=== PATIENT | female | born 1935 | race Caucasian/White ===

== ENCOUNTER → 2016-07-08 | Outpatient (CLI) | payer MEDICARE ==
--- NOTE | 2016-07-08 14:51 | REP ---
Clinical: Thyroid disorder. Technique: PA and lateral. Comparison: 07/03/2010. Findings: Mediastinum and cardiac silhouette are stable. Lung ramirez demonstrate diffuse chronic interstitial changes and scattered punctate calcified granulomata similar to prior examination. Evidence of prior right axillary node dissection. No acute consolidation, effusion, or pneumothorax. Skeletal structures demonstrate osteopenia and degenerative changes. Impression: Chronic stable changes. No acute cardiopulmonary process identified. Signed by Aurelio Ruiz MD 07/08/2016 02:43 P
== END ==
LOC: M RAD 14:31
PROVIDERS: ATTEND Ophthalmology
DX: E07.9 Disorder of thyroid, unspecified (principal)

== ENCOUNTER → 2017-12-06 | Outpatient (REF) | payer MEDICARE ==
[2017-12-06 14:31] LABS: TOTAL 25(OH) VITAMIN D 52.7 NG/ML (30.0-100.0)
== END ==
LOC: M LABDRAW1 13:36
DX: M81.0 Age-related osteoporosis without current pathological fracture (principal)
CPT/HCPCS: 82306

== ENCOUNTER → 2018-06-22 | Outpatient (REF) | LOC: M LAB LCGH 13:35 | PROVIDERS: ATTEND Surgery | DX: Z00.00 Encounter for general adult medical examination without abnormal findings (principal) ==

== ENCOUNTER → 2020-04-30 | Outpatient (CLI) | payer MEDICARE ==
--- NOTE | 2020-04-30 11:07 | REP ---
INDICATION: LOW BACK PAIN, RIGHT SCIATICA COMPARISON: None. TECHNIQUE: AP, lateral, bilateral oblique, and coned-down views of the lumbar spine. FINDINGS: Osteopenia and advanced multilevel degenerative disc osteophyte complexes are appreciated findings include osteophytosis, endplate sclerosis, disc space narrowing, and facet arthropathy. Lateral view best demonstrates compression deformity at L1 with approximately 50% loss of superior vertebral body height as well as compression deformity at L4 with approximately 10% loss of superior vertebral body height. Findings are of indeterminate age and require correlation. IMPRESSION: 1. Compression deformities at L1 and L4 of indeterminate age require further investigation. 2. Diffuse osteopenia and advanced multilevel degenerative spondylosis. <Electronically signed by Aurelio Ruiz > 04/30/20 [id number]
== END ==
LOC: M WUC 09:18
PROVIDERS: ATTEND Internal Medicine
DX: M47.817 Spondylosis without myelopathy or radiculopathy, lumbosacral region (principal); M54.31 Sciatica, right side

== ENCOUNTER → 2020-05-07 | Outpatient (CLI) | payer MEDICARE ==
--- NOTE | 2020-05-07 12:44 | REPVR ---
PROCEDURE INFORMATION: Exam: MR Lumbar Spine Without Contrast Exam date and time: 05/07/2020 10:58 AM Age: 84 years old Clinical indication: Low back pain; Patient HX: Lbp, no HX trama TECHNIQUE: Imaging protocol: Multiplanar magnetic resonance images of the lumbar spine without intravenous contrast. COMPARISON: CR SPINE LS COMPLETE 04/30/2020 9:34 AM FINDINGS: Vertebrae: There is a moderate L1 compression fracture, probably old but could have an acute component. There is mild retropulsion superiorly which causes mild spinal canal stenosis. There is a recent L4 compression fracture without retropulsion. Spinal cord: Normal signal. No cord compression. L1-L2: No significant disc disease. No significant spinal canal stenosis. No neural foraminal stenosis. L2-L3: There is disc desiccation. Disc bulging extends into both neural foramen causing mild bilateral neural foraminal narrowing. There is facet arthropathy and ligamentum flavum hypertrophy. There is mild spinal canal stenosis. L3-L4: There is disc desiccation. There is a moderate disc/osteophyte complex that flattens the ventral thecal sac. There is moderate bilateral neural foraminal narrowing. There is facet arthropathy and ligamentum flavum hypertrophy. There is moderate spinal canal stenosis. L4-L5: There is grade 1 anterior spondylolisthesis at this level. There is disc desiccation. There is uncovering of the intervertebral disc due to the anterolisthesis. There is moderate bilateral neural foraminal narrowing. There is facet arthropathy and ligamentum flavum hypertrophy. There is moderate spinal canal stenosis. L5-S1: There is disc space narrowing and desiccation. There are moderate degenerative end plate changes at this level. There is a moderate disc bulge with a moderate superimposed broad-based disc herniation. Disc bulging extends into both neural foramen causing moderate bilateral neural foraminal narrowing. Sacrum/coccyx: There is a 1.5 cm sacral cyst. Soft tissues: Unremarkable. IMPRESSION: 1. There is a moderate L1 compression fracture, probably old but could have an acute component. There is mild retropulsion superiorly which causes mild spinal canal stenosis. There is a recent L4 compression fracture without retropulsion. 2. Moderate multilevel degenerative changes causing variable degrees of spinal canal and neuroforaminal narrowing. Please see details above. Electronically signed by: Todd Young On 05/07/2020 12:44:15 PM
== END ==
LOC: M PLARAD 10:53
PROVIDERS: ATTEND Internal Medicine
DX: R93.7 Abnormal findings on diagnostic imaging of other parts of musculoskeletal system (principal); M54.41 Lumbago with sciatica, right side

== ENCOUNTER → 2020-06-17 | Outpatient (REF) | payer MEDICARE ==
[2020-06-17 18:04] LABS: TOTAL PROTEIN 6.7 GM/DL (6.4-8.2)
== END ==
LOC: M LAB REF 16:14
PROVIDERS: ATTEND Internal Medicine
DX: S32.040D Wedge compression fracture of fourth lumbar vertebra, subsequent encounter for fracture with routine healing (principal); M80.0AXA Age-related osteoporosis with current pathological fracture, other site, initial encounter for fracture

== ENCOUNTER 2020-11-26 15:31 | Inpatient (IN) | payer MEDICARE ==
[~2020-11-26] VITALS: Ht 154.9 cm; Wt 49.6 kg
--- NOTE | 2020-11-26 16:16 | REP ---
INDICATION: trauma COMPARISON: None. TECHNIQUE: Axial noncontrast images from the skull base to the thoracic inlet with coronal reformations. This CT examination was performed using the following dose reduction techniques: Automated exposure control, adjustment of mA and/or kv according to the patient's size, and use of iterative reconstruction technique. FINDINGS: Atrophy with periventricular leukomalacia and microvascular ischemic changes are appreciated. The ventricles and sulci are symmetric. Branch-white differentiation is maintained. There is no evidence for acute intracranial hemorrhage, mass/mass effect, pathology or infarction. No extra-axial fluid collection. Calvarium is intact. Paranasal sinuses without fluid level to suggest occult injury. IMPRESSION: Atrophy and microvascular ischemic changes. No acute intracranial hemorrhage, infarction, or mass/mass effect. <Electronically signed by Aurelio Ruiz > 11/26/20 [id number]
--- NOTE | 2020-11-26 16:17 | REP ---
INDICATION: trauma COMPARISON: None. TECHNIQUE: Axial noncontrast images from the skull base to the thoracic inlet with coronal and sagittal re-formations This CT examination was performed using the following dose reduction techniques: Automated exposure control, adjustment of mA and/or kv according to the patient's size, and use of iterative reconstruction technique. FINDINGS: Advanced osteopenia and multilevel degenerative changes including endplate sclerosis/heterogeneity, disc space narrowing, osteophytosis, and facet hypertrophy. Alignment and exaggerated lordosis noted without acute fracture/compression injury or subluxation. Spinal canal is grossly patent. Posterior elements and spinous processes are intact. IMPRESSION: Advanced multilevel degenerative spondylosis. No acute fracture/compression injury or subluxation. <Electronically signed by Aurelio Ruiz > 11/26/20 [id number]
[2020-11-26] MEDS ORDERED: MORPHINE 2 MG/ML 1ML VIAL (J2270) IV PRN (17:20)
[2020-11-26] MEDS ORDERED: BOOSTRIX/ADACEL VACCINE (DIPHTH/PERTUSS/ACELL/TETANUS) 0.5ML SYR IM ONE (17:20)
[2020-11-26] MEDS ORDERED: ONDANSETRON 4MG/2ML VIAL IV ONE (17:20)
[2020-11-26 17:28] LABS: BASO % 0.1 % (0.0-1.0); HEMATOCRIT 39.5 % (36.0-47.0); HEMOGLOBIN 13.1 g/dl (12.0-15.5); LYMPH # 0.3 10^3/uL (1.5-5.0); LYMPH % 2.8 % (24.0-44.0); MEAN CORPUSCULAR HEMOGLOBIN 32.5 pg (27.0-33.0); MEAN CORPUSCULAR HGB CONC 33.2 g/dl (32.0-36.5); MONO # 0.6 10^3/uL (0.0-0.8); MONO % 5.2 % (2.0-8.0); NEUTROPHILS # 10.5 10^3/uL (1.5-8.5); NEUTROPHILS % 91.6 % (36.0-66.0); PLATELET COUNT, AUTOMATED 187 10^3/uL (150-450); RED BLOOD COUNT 4.03 10^6/uL (4.00-5.40); WHITE BLOOD COUNT 11.4 10^3/uL (4.0-10.0)
[2020-11-26 17:55] LABS: ALBUMIN 2.9 GM/DL (3.2-5.2); ALT/SGPT 41 U/L (12-78); BILIRUBIN,TOTAL 0.3 MG/DL (0.2-1.0); BLOOD UREA NITROGEN 27 MG/DL (7-18); CALCIUM LEVEL 8.8 MG/DL (8.8-10.2); CARBON DIOXIDE LEVEL 29 MEQ/L (21-32); CHLORIDE LEVEL 110 MEQ/L (98-107); CPK CREATINE PHOSPHOKINASE 482 U/L (26-192); CREATININE FOR GFR 0.75 MG/DL (0.55-1.30); GLOMERULAR FILTRATION RATE > 60.0 (>32); GLUCOSE, FASTING 151 MG/DL (70-100); POTASSIUM SERUM 4.8 MEQ/L (3.5-5.1); SODIUM LEVEL 142 MEQ/L (136-145); TOTAL PROTEIN 6.4 GM/DL (6.4-8.2)
--- NOTE | 2020-11-26 18:05 | REP ---
INDICATION: preop COMPARISON: 07/08/2016 TECHNIQUE: Portable AP view of the chest FINDINGS: Mediastinum and cardiac silhouette are stable. Diffuse chronic interstitial changes are appreciated. No focal consolidation, effusion, or pneumothorax. Prior right axillary dissection. Skeletal structures intact. IMPRESSION: Chronic changes. No acute consolidation or effusion. <Electronically signed by Aurelio Ruiz > 11/26/20 [id number]
--- NOTE | 2020-11-26 18:06 | REP ---
INDICATION: fall Nontraumatic hip pain. COMPARISON: None. TECHNIQUE: Frontal view of the pelvis with neutral and frog lateral views of the right hip. FINDINGS: Acute comminuted intertrochanteric fracture of the proximal right femur. Underlying osteopenia and degenerative changes noted. IMPRESSION: Acute comminuted intertrochanteric fracture of the right femur. <Electronically signed by Aurelio Ruiz > 11/26/20 [id number]
--- NOTE | 2020-11-26 18:07 | REP ---
INDICATION: fall COMPARISON: None. TECHNIQUE: AP and lateral right forearm FINDINGS: Fracture of the distal radial metaphysis with overlying soft tissue swelling. No further acute fracture or dislocation identified. IMPRESSION: Acute fracture of the distal radial metaphysis.. <Electronically signed by Aurelio Ruiz > 11/26/20 [id number]
--- NOTE | 2020-11-26 18:08 | REP ---
INDICATION: fall COMPARISON: None. TECHNIQUE: AP, lateral, bilateral oblique views right wrist. FINDINGS: Acute comminuted Colles' fracture of the distal radial metaphysis with overlying soft tissue swelling. Chronic osteopenia and degenerative changes are appreciated which limit further evaluation. No further acute fracture or dislocation identified. IMPRESSION: Acute comminuted Colles' fracture of the distal radial metaphysis. <Electronically signed by Aurelio Ruiz > 11/26/20 [id number]
[2020-11-26] MEDS ORDERED: NS 1,000 ML IV SCH (18:40)
[2020-11-26 19:13] LABS: RSV AMPLIFICATION NEGATIVE (NEGATIVE)
--- NOTE | 2020-11-26 19:32 | CR.PDOC ---
General Date of Consultation: Nov 26, 2020 Attending Physician: NISSA COLVIN MD Consultation REASON FOR CONSULTATION/CHIEF COMPLAINT: [1. Right intertrochanteric hip fracture 2. Right distal radius fracture]. HISTORY OF PRESENT ILLNESS: Patient sustained a fall today at home. Sloane Edward is an 85-year-old female with significant medical history of hypothyroidism, breast cancer in remission, and glaucoma who presents to ER with hip and leg pain post fall. Patient lost her balance and fell onto her right side. Sudden onset pain unable to weight-bear. Unfortunately patient remained on the floor until her returned home. CT head and C-spine nonacute. X- rays completed of right forearm chest and hip/pelvis. Chest x-ray nonacute. Radiology significant for Right intertrochanteric hip fracture and Right distal radius fracture. She states she is typically a community ambulator. Ambulates with no aids. Home Medications Scheduled Alendronate Sodium (Alendronate Sodium) 35 Mg Tablet, 35 MG PO QWEEK, (Reported) SATURDAYS Aspirin (Aspirin EC) 81 Mg Tablet.dr, 81 MG PO DAILY, (Reported) Bimatoprost (Lumigan) 0.01% 2.5ML Drops, 1 DROP OU QHS, (Reported) Calcitonin [place] (Calcitonin-[place]) 3.7 Ml Guys.pump, 1 SPRAY NARES DAILY, (Reported) Calcium Carbonate/Vitamin D3 (Calcium 600 + Vit D 400 Softgl) 1 Each Capsule, 1 CAP PO BID, (Reported) TAKES WITH LUNCH AND DINNER Docusate Sodium (Stool Softener) 100 Mg Capsule, 100 MG PO QHS, (Reported) Fexofenadine HCl (Fexofenadine HCl) 60 Mg Tablet, 60 MG PO DAILY, (Reported) Levothyroxine Sodium (Levothyroxine Sodium) 88 Mcg Tablet, 88 MCG PO DAILY, (Reported) Multivitamins (Thera M Plus Tablet) 1 Each Tablet, 1 TAB PO DAILY, (Reported) [place]-3 Fatty Acids/Fish Oil (Fish Oil 1,000 mg Capsule) 1 Each Capsule, 1,000 MG PO DAILY, (Reported) Sennosides (Senna) 8.6 Mg Tablet, 17.2 MG PO QHS, (Reported) Scheduled PRN Diclofenac Sodium (Diclofenac Sodium) 1% 100GM Gel..gram., 1 APPLIC TOP QID PRN for PAIN LEVEL 1-4, (Reported) APPLIES TO LOW BACK Allergies Coded Allergies: Penicillins (Verified Allergy, Mild, hives, 11/26/20) erythromycin base (Verified Allergy, Unknown, 11/26/20) nitrofurantoin (Verified Adverse Reaction, Mild, nausea, 11/26/20) ciprofloxacin (Verified Adverse Reaction, Unknown, leg cramps, 11/26/20) ibuprofen (Verified Adverse Reaction, Unknown, vision changes, 11/26/20) Past Medical History Medical History Breast cancer, 1996 status post chemo and radiation, borderline glaucoma, hypothyroidism, history of bowel blockage and resection Surgical History , prior danii cyst removal, varicose vein surgery, hysterectomy, bowel resection secondary to bowel obstruction with ileostomy placement and reversal, Family History Significant Family History: No pertinent family hx Social History * Smoker: Denies, other (pt does report hx of second hand smoke growing up ) Alcohol: Denies Drugs: denies Recent Travel/Sick Contacts: Denies: Recent travel, Recent sick contacts Psychosocial History: No pertinent psych hx Lives at home with , pt confirms he would be decision maker it pt incapacitated Review of Systems Constitutional: Denies: Chills, Fever, Night Sweats Eyes: Denies: Pain, Vision change ENT: Denies: Head Aches, Ear Pain, Dysphagia Skin: Denies: Rash, Lesions, Breakdown Pulmonary: Denies: Dyspnea, Cough Cardiovascular: Denies: Chest Pain, Palpitations, Orthopnea, Paroxysmal Noc. Dyspnea, Lt Headedness Gastrointestinal: Denies: Nausea, Vomiting, Abdominal Pain, Diarrhea Genitourinary: Denies: Dysuria, Frequency, Incontinence, Retention Hematologic: Denies: Bruising, Bleeding Excessively Musculoskeletal: Reports: Back Pain, Leg Pain, Joint Pain; Denies: Neck Pain, Muscle Pain, Spasms Neurological: Denies: Weakness, Numbness, Change in speech, Confusion Psych: Reports: Mood Normal; Denies: Depression, Memory Issues Physical Examination Physical Examination General Exam: Positive: Alert, Cooperative, No Acute Distress Eye Exam: Positive: PERRLA, Conjunctiva & lids normal, EOMI; Negative: Sclera icteric ENT Exam: Positive: Atraumatic, Mucous membr. moist/pink, Pharynx Normal Neck Exam: Positive: Supple, Other (limitation to neck ROM d/t discomfort with movement ); Negative: JVD, thyromegaly Telemetry: Positive: No significant arrhythmia Abdomen Exam: Soft non-tender Extremity Exam: Right upper extremity, tenderness palpation right distal radius mild deformity. Maintains passive range of motion. Good pulses distally good capillary refill ,sensory intact to light touch. Denies any pain shoulder and elbow. Maintains good range of motion shoulder and elbow. Examination right lower extremity. Extreme pain positive logroll. No pain on palpation distal femur knee and ankle. Sensory intact to light touch. Good pulses distally. Leg is mildly shortened and externally rotated. Negative exam for left lower extremity. Skin Exam: Positive: Nl turgor and temperature, Other skin issue (scalp abrasion, r wist bruising ); Negative: Breakdown, Lesion Neuro Exam: Positive: Normal Speech; Negative: Normal Gait Psych Exam: Positive: Mental status NL, Mood NL, Oriented x 3 ALLERGIES: Please see below. HOME MEDICATIONS: Please see below. LABORATORY DATA: Please see below. ASSESSMENT/PLAN: 1. [Admit to the hospitalist for preoperative optimization and pain control]. 2. [N.p.o. at midnight 3. Patient consented for right cephalomedullary nail. Patient consented for closed reduction and casting right distal radius possible open reduction internal fixation left distal radius.]. Vital Signs/I&O Vital Signs Date Time Temp Pulse Resp B/P (MAP) Pulse Ox O2 Delivery O2 Flow Rate FiO2 11/26/20 17:29 18 99 11/26/20 17:04 98.6 64 137/66 (89) Room Air Laboratory Data Labs 24H Laboratory Tests 2 11/26/20 17:03: Immature Granulocyte % (Auto) 0.3, Neutrophils (%) (Auto) 91.6H, Lymphocytes (%) (Auto) 2.8L, Monocytes (%) (Auto) 5.2, Eosinophils (%) (Auto) 0.0, Basophils (%) (Auto) 0.1, Neutrophils # (Auto) 10.5H, Lymphocytes # (Auto) 0.3L, Monocytes # (Auto) 0.6, Eosinophils # (Auto) 0.0, Basophils # (Auto) 0.0, Nucleated Red Blood Cells % (auto) 0.0, Anion Gap 3L, Glomerular Filtration Rate > 60.0, Calcium Level 8.8, Total Bilirubin 0.3, Aspartate Amino Transf (AST/SGOT) 64H, Alanine Aminotransferase (ALT/SGPT) 41, Alkaline Phosphatase 44L, Total Creatine Kinase 482H, Total Protein 6.4, Albumin 2.9L, Albumin/Globulin Ratio 0.8L 11/26/20 18:10: Coronavirus (COVID-19)(PCR) NEGATIVE, Influenza Type A (RT-PCR) NEGATIVE, Influenza Type B (RT-PCR) NEGATIVE, Respiratory Syncytial Virus (PCR) NEGATIVE 11/26/20 18:59: CBC/BMP Laboratory Tests 11/26/20 17:03 Allergies Coded Allergies: Penicillins (Verified Allergy, Mild, hives, 11/26/20) erythromycin base (Verified Allergy, Unknown, 11/26/20) nitrofurantoin (Verified Adverse Reaction, Mild, nausea, 11/26/20) ciprofloxacin (Verified Adverse Reaction, Unknown, leg cramps, 11/26/20) ibuprofen (Verified Adverse Reaction, Unknown, vision changes, 11/26/20) Home Medications Scheduled Alendronate Sodium (Alendronate Sodium) 35 Mg Tablet, 35 MG PO QWEEK, (Reported) SATURDAYS Aspirin (Aspirin EC) 81 Mg Tablet.dr, 81 MG PO DAILY, (Reported) Bimatoprost (Lumigan) 0.01% 2.5ML Drops, 1 DROP OU QHS, (Reported) Calcitonin [place] (Calcitonin-[place]) 3.7 Ml Guys.pump, 1 SPRAY NARES DAILY, (Reported) Calcium Carbonate/Vitamin D3 (Calcium 600 + Vit D 400 Softgl) 1 Each Capsule, 1 CAP PO BID, (Reported) TAKES WITH LUNCH AND DINNER Docusate Sodium (Stool Softener) 100 Mg Capsule, 100 MG PO QHS, (Reported) Fexofenadine HCl (Fexofenadine HCl) 60 Mg Tablet, 60 MG PO DAILY, (Reported) Levothyroxine Sodium (Levothyroxine Sodium) 88 Mcg Tablet, 88 MCG PO DAILY, (Reported) Multivitamins (Thera M Plus Tablet) 1 Each Tablet, 1 TAB PO DAILY, (Reported) [place]-3 Fatty Acids/Fish Oil (Fish Oil 1,000 mg Capsule) 1 Each Capsule, 1,000 MG PO DAILY, (Reported) Sennosides (Senna) 8.6 Mg Tablet, 17.2 MG PO QHS, (Reported) Scheduled PRN Diclofenac Sodium (Diclofenac Sodium) 1% 100GM Gel..gram., 1 APPLIC TOP QID PRN for PAIN LEVEL 1-4, (Reported) APPLIES TO LOW BACK AUDIE NISSA HENDRICKS MD Nov 26, 2020 19:32
[2020-11-26] MEDS ORDERED: FEXO60CA PO (19:37)
[2020-11-26] MEDS ORDERED: LEVO88TA3 PO (19:37)
[2020-11-26] MEDS ORDERED: ASPI-161 PO (19:37)
[2020-11-26] MEDS ORDERED: FISH1000 PO (19:37)
[2020-11-26] MEDS ORDERED: MM S100C PO (19:37)
[2020-11-26] MEDS ORDERED: VITMTA PO (19:37)
[2020-11-26] MEDS ORDERED: BIMA01SOL OU (19:37)
[2020-11-26] MEDS ORDERED: ALEN35TA56 PO (19:37)
[2020-11-26] MEDS ORDERED: SENN-80 PO (19:37)
[2020-11-26] MEDS ORDERED: DICL1GEL3 TOP (19:37)
[2020-11-26] MEDS ORDERED: CALC20SPR NARES (19:37)
[2020-11-26] MEDS ORDERED: CALCCAP4 PO (19:37)
[2020-11-26] MEDS ORDERED: HOME MED LIST COMPLETE! XX SCH (19:40)
[2020-11-26 20:44] LABS: NT-PRO BNP 493 PG/ML (<450)
[2020-11-26] MEDS: DICLOFENAC EPOLAMINE 1.3 % PATCH TOP SCH (21:00)
[2020-11-26] MEDS: DOCUSATE SODIUM 100MG CAPSULE PO SCH ×2 (21:00→23:47)
[2020-11-26] MEDS: CALCIUM/VITAMIN D 500 MG TAB PO SCH ×2 (21:00→23:47)
[2020-11-26] MEDS: SENNA 8.6 MG TAB (SENOKOT) PO SCH ×2 (21:00→23:47)
--- NOTE | 2020-11-26 21:22 | HPEPDOC ---
General Date of Admission Nov 26, 2020 at 18:40 Date of Service: Nov 26, 2020 Chief Complaint fall Source: Patient History of Present Illness Sloane Edward is an 85-year-old female with significant medical history of hypothyroidism, breast cancer in remission, and glaucoma who presents to ER with hip and leg pain post fall. Patient reports that her had left her work and she had just taken a shower when she had reached for her clothing from the [employer] to get dressed and reports that she had lost her balance landing hard on her right side. Patient reports that she had instant intense sharp/shooting pain and she knew "had broken something". Patient reports that she was unable to get up from the floor did not have her cell phone available and as her had left for work she had laid on the floor hoping someone would just come home. Patient reports that her came home about 3 and thus she was on the floor roughly from 10:30 AM till 3 PM. Pt denies palafox, sinus congestion, sore throat, productive cough, sob, palpitations, chest pain, n/v/d, abdominal pain, sensory changes or syncope. Patient reports that she did not think she hit her head but notable wound to scalp. Of note, patient nonfocal neuro exam. CT head and C-spine nonacute. X-rays c ompleted of right forearm chest and hip/pelvis. Chest x-ray nonacute. Radiology significant for Right intertrochanteric hip fracture and Right distal radius fracture. Initial lab work significant for WBC 11.4, BUN 27, creatinine 0.75, blood glucose 151, CPK 482. Ortho was consulted in ED for further recommendations. Home Medications Scheduled Alendronate Sodium (Alendronate Sodium) 35 Mg Tablet, 35 MG PO QWEEK, (Reported) SATURDAYS Aspirin (Aspirin EC) 81 Mg Tablet.dr, 81 MG PO DAILY, (Reported) Bimatoprost (Lumigan) 0.01% 2.5ML Drops, 1 DROP OU QHS, (Reported) Calcitonin [place] (Calcitonin-[place]) 3.7 Ml [place].pump, 1 SPRAY NARES DAILY, (Reported) Calcium Carbonate/Vitamin D3 (Calcium 600 + Vit D 400 Softgl) 1 Each Capsule, 1 CAP PO BID, (Reported) TAKES WITH LUNCH AND DINNER Docusate Sodium (Stool Softener) 100 Mg Capsule, 100 MG PO QHS, (Reported) Fexofenadine HCl (Fexofenadine HCl) 60 Mg Tablet, 60 MG PO DAILY, (Reported) Levothyroxine Sodium (Levothyroxine Sodium) 88 Mcg Tablet, 88 MCG PO DAILY, (Reported) Multivitamins (Thera M Plus Tablet) 1 Each Tablet, 1 TAB PO DAILY, (Reported) [place]-3 Fatty Acids/Fish Oil (Fish Oil 1,000 mg Capsule) 1 Each Capsule, 1,000 MG PO DAILY, (Reported) Sennosides (Senna) 8.6 Mg Tablet, 17.2 MG PO QHS, (Reported) Scheduled PRN Diclofenac Sodium (Diclofenac Sodium) 1% 100GM Gel..gram., 1 APPLIC TOP QID PRN for PAIN LEVEL 1-4, (Reported) APPLIES TO LOW BACK Allergies Coded Allergies: Penicillins (Verified Allergy, Mild, hives, 11/26/20) erythromycin base (Verified Allergy, Unknown, 11/26/20) nitrofurantoin (Verified Adverse Reaction, Mild, nausea, 11/26/20) ciprofloxacin (Verified Adverse Reaction, Unknown, leg cramps, 11/26/20) ibuprofen (Verified Adverse Reaction, Unknown, vision changes, 11/26/20) Past Medical History Medical History Breast cancer, 1996 status post chemo and radiation, borderline glaucoma, hypothyroidism, history of bowel blockage and resection Surgical History , prior danii cyst removal, varicose vein surgery, hysterectomy, bowel resection secondary to bowel obstruction with ileostomy placement and reversal, Family History Significant Family History: No pertinent family hx Social History * Smoker: Denies, other (pt does report hx of second hand smoke growing up ) Alcohol: Denies Drugs: denies Recent Travel/Sick Contacts: Denies: Recent travel, Recent sick contacts Psychosocial History: No pertinent psych hx Lives at home with , pt confirms he would be decision maker it pt incapacitated A-FIB/CHADSVASC A-FIB History Current/History of A-Fib/PAF?: No Current PO Anticoag Therapy: No Review of Systems Constitutional: Denies: Chills, Fever, Night Sweats Eyes: Denies: Pain, Vision change ENT: Denies: Head Aches, Ear Pain, Dysphagia Skin: Denies: Rash, Lesions, Breakdown Pulmonary: Denies: Dyspnea, Cough Cardiovascular: Denies: Chest Pain, Palpitations, Orthopnea, Paroxysmal Noc. Dyspnea, Lt Headedness Gastrointestinal: Denies: Nausea, Vomiting, Abdominal Pain, Diarrhea Genitourinary: Denies: Dysuria, Frequency, Incontinence, Retention Hematologic: Denies: Bruising, Bleeding Excessively Musculoskeletal: Reports: Back Pain, Leg Pain, Joint Pain; Denies: Neck Pain, Muscle Pain, Spasms Neurological: Denies: Weakness, Numbness, Change in speech, Confusion Psych: Reports: Mood Normal; Denies: Depression, Memory Issues Physical Examination General Exam: Positive: Alert, Cooperative, No Acute Distress Eye Exam: Positive: PERRLA, Conjunctiva & lids normal, EOMI; Negative: Sclera icteric ENT Exam: Positive: Atraumatic, Mucous membr. moist/pink, Pharynx Normal Neck Exam: Positive: Supple, Other (limitation to neck ROM d/t discomfort with movement ); Negative: JVD, thyromegaly Chest Exam: Positive: Diminished Heart Exam: Positive: Rate Normal, Regular Rhythm, Normal S1, Normal S2; Negative: Murmurs, Rubs Telemetry: Positive: No significant arrhythmia Abdomen Exam: Positive: Normal bowel sounds, Soft; Negative: Tenderness, Hepatospenomegaly Extremity Exam: Positive: Normal pulses, Tenderness (tender right hip/ thigh and r wrist ); Negative: Clubbing, Cyanosis, Edema, Swelling Skin Exam: Positive: Nl turgor and temperature, Other skin issue (scalp abrasion, r wist bruising ); Negative: Breakdown, Lesion Neuro Exam: Positive: Normal Speech; Negative: Normal Gait Psych Exam: Positive: Mental status NL, Mood NL, Oriented x 3 Vital Signs Vital Signs Date Time Temp Pulse Resp B/P (MAP) Pulse Ox O2 Delivery O2 Flow Rate FiO2 11/26/20 17:29 18 99 11/26/20 17:04 98.6 64 137/66 (89) Room Air Laboratory Data Labs 24H Laboratory Tests 2 11/26/20 17:03: Immature Granulocyte % (Auto) 0.3, Neutrophils (%) (Auto) 91.6H, Lymphocytes (%) (Auto) 2.8L, Monocytes (%) (Auto) 5.2, Eosinophils (%) (Auto) 0.0, Basophils (%) (Auto) 0.1, Neutrophils # (Auto) 10.5H, Lymphocytes # (Auto) 0.3L, Monocytes # (Auto) 0.6, Eosinophils # (Auto) 0.0, Basophils # (Auto) 0.0, Nucleated Red Blood Cells % (auto) 0.0, Anion Gap 3L, Glomerular Filtration Rate > 60.0, Calcium Level 8.8, Total Bilirubin 0.3, Aspartate Amino Transf (AST/SGOT) 64H, Alanine Aminotransferase (ALT/SGPT) 41, Alkaline Phosphatase 44L, Total Creatine Kinase 482H, Total Protein 6.4, Albumin 2.9L, Albumin/Globulin Ratio 0.8L 11/26/20 18:10: Coronavirus (COVID-19)(PCR) NEGATIVE, Influenza Type A (RT-PCR) NEGATIVE, Influenza Type B (RT-PCR) NEGATIVE, Respiratory Syncytial Virus (PCR) NEGATIVE 11/26/20 18:59: Magnesium Level 2.0 CBC/BMP Laboratory Tests 11/26/20 17:03 Assessment/Plan 1. Right intertrochanteric hip fracture secondary to mechanical fall -Monitor patient, tele -IS, hip precaution and fall precautions -pain management -Neurovascular checks -N.p.o. at midnight for intervention. -Pre-op ekg, cxr nonacute -A.m. lab -Ortho consulted in ED and appreciate further recommendations. 2. Mild rhabdo in patient with fall: Patient reports 9 hours after fall on floor. CPK 482 -Monitor fluid balance, I's and O's, urinary output -Hydration with consideration -Avoid nephrotoxins as able -Serial CPKs/BMP -A.m. lab 3. Leukocytosis: In setting of above, likely reactive. Patient not tachycardic or tachypneic, normotensive and afebrile. Chest x-ray nonacute. UA pending. Consider differentials/need for empiric coverage. 4. Head abrasion / fall: CT head and neck nonacute. -Scalp site care - neuro checks x24 hr - pt not on OAC 5. Right distal radius fracture -Neurovascular checks every shift. -Splint ordered. 6. Hypothyroid: Continue levothyroxine 7. Glaucoma: She on fall precautions. Home medication drops to be continued once reconciled 8. Chronic back pain: Aggravated with fall. Encourage nonpharmacologic methods. We will continue topical adjunct pain medications as well as morphine. DVT prophylaxis: Heparin subcu CODE STATUS: Full Disposition planning: Likely require rehab placement Plan / VTE VTE Prophylaxis Ordered?: Yes Attending Note Attending Note TIME OF SERVICE 845PM Ms. Edward is an 85 yr old F w a previous hx of osteoporosis who reports loosing balance and falling. Her PE was remarkable for a slim build. She didnt appear to be in pain She will be admitted for: #Right femur fx - pain meds / her RCRI score is 0. Because she is older than 65 we will check a pro-BNP as part of dawna-operative evaluation (if its >300 she will need to have troponins checked daily, other than that she will not need additional testing prior to proceeding with surgery) / NPO w IVF # Elevated CPK - trend CPK / f/u urine myoglobin and c/w IVF # Osteoporosis -She has had a fx despite taking anti-resorptive Meds. She will need to be referred to Endo to determine if this fx is due to alendronate failure, for a work-up to r/o secondary causes of osteoporosis and to determine if she needs to be upgraded to Denosumab and or teriparatide PABLO GRIMALDO NP Nov 26, 2020 20:14 LG LARSON MD Nov 26, 2020 22:28
[2020-11-26 22:30] VITALS: BP 145/63
[2020-11-26 23:36] LABS: BLOOD UREA NITROGEN 26 MG/DL (7-18); CALCIUM LEVEL 8.8 MG/DL (8.8-10.2); CARBON DIOXIDE LEVEL 28 MEQ/L (21-32); CHLORIDE LEVEL 110 MEQ/L (98-107); CPK CREATINE PHOSPHOKINASE 578 U/L (26-192); CREATININE FOR GFR 0.84 MG/DL (0.55-1.30); GLOMERULAR FILTRATION RATE > 60.0 (>32); GLUCOSE, FASTING 151 MG/DL (70-100); POTASSIUM SERUM 4.4 MEQ/L (3.5-5.1); SODIUM LEVEL 141 MEQ/L (136-145)
[2020-11-26] MEDS: MORPHINE 2 MG/ML 1ML VIAL (J2270) IV PRN (23:48)
[2020-11-26] MEDS: HEPARIN SOD (PORCINE) 5000UNITS/ML 1ML VIAL/SYRINGE SC SCH (23:49)
[2020-11-27] VITALS (9 sets, daily range): BP systolic 117–140; BP diastolic 58–76
[2020-11-27] MEDS ORDERED: D5W/0.9% SODIUM CHLORIDE 1,000 ML IV SCH
[2020-11-27] MEDS: ONDANSETRON 4MG/2ML VIAL IV PRN ×2 (03:24→08:02)
[2020-11-27] MEDS: MORPHINE 2 MG/ML 1ML VIAL (J2270) IV PRN ×4 (03:55→20:38)
[2020-11-27 04:15] LABS: BLOOD UREA NITROGEN 27 MG/DL (7-18); CALCIUM LEVEL 8.2 MG/DL (8.8-10.2); CARBON DIOXIDE LEVEL 27 MEQ/L (21-32); CHLORIDE LEVEL 112 MEQ/L (98-107); CPK CREATINE PHOSPHOKINASE 616 U/L (26-192); CREATININE FOR GFR 0.77 MG/DL (0.55-1.30); GLOMERULAR FILTRATION RATE > 60.0 (>32); GLUCOSE, FASTING 146 MG/DL (70-100); POTASSIUM SERUM 4.4 MEQ/L (3.5-5.1); SODIUM LEVEL 141 MEQ/L (136-145)
[2020-11-27] MEDS: LEVOTHYROXINE 88MCG TABLET (0.088 MG) PO SCH (06:00)
[2020-11-27] MEDS: HEPARIN SOD (PORCINE) 5000UNITS/ML 1ML VIAL/SYRINGE SC SCH ×3 (06:26→20:37)
[2020-11-27] MEDS: ASPIRIN 81MG ENTERIC TABLET PO SCH (08:08)
[2020-11-27] MEDS: OMEGA-3 1000MG CAPSULE PO SCH (08:08)
[2020-11-27] MEDS: CALCIUM/VITAMIN D 500 MG TAB PO SCH ×2 (08:08→20:37)
[2020-11-27] MEDS: FEXOFENADINE 60 MG TAB PO SCH (08:08)
[2020-11-27] MEDS: MULTIVITAMINS/MINERALS THERAP 1 TAB PO SCH (08:08)
[2020-11-27] MEDS: DICLOFENAC EPOLAMINE 1.3 % PATCH TOP SCH ×2 (09:00→21:50)
[2020-11-27] MEDS ORDERED: FLUBLOK(EGG FREE)(QUAD)INFLUENZA VACC 0.5ML SYRINGE 18YRS & OLDER IM ONE (09:00)
[2020-11-27] MEDS ORDERED: CALCITONIN NASAL SPRAY 3.7 ML BTL SCH (09:00)
[2020-11-27 10:12] LABS: BASO % 0.1 % (0.0-1.0); HEMATOCRIT 35.4 % (36.0-47.0); HEMOGLOBIN 11.4 g/dl (12.0-15.5); LYMPH # 0.8 10^3/uL (1.5-5.0); LYMPH % 11.5 % (24.0-44.0); MEAN CORPUSCULAR HEMOGLOBIN 31.8 pg (27.0-33.0); MEAN CORPUSCULAR HGB CONC 32.2 g/dl (32.0-36.5); MEAN CORPUSCULAR VOLUME 98.6 fl (80.0-96.0); MONO # 0.7 10^3/uL (0.0-0.8); MONO % 10.4 % (2.0-8.0); NEUTROPHILS # 5.3 10^3/uL (1.5-8.5); NEUTROPHILS % 77.6 % (36.0-66.0); PLATELET COUNT, AUTOMATED 162 10^3/uL (150-450); RED BLOOD COUNT 3.59 10^6/uL (4.00-5.40); WHITE BLOOD COUNT 6.9 10^3/uL (4.0-10.0)
[2020-11-27 10:36] LABS: BLOOD UREA NITROGEN 26 MG/DL (7-18); CALCIUM LEVEL 8.1 MG/DL (8.8-10.2); CARBON DIOXIDE LEVEL 30 MEQ/L (21-32); CHLORIDE LEVEL 112 MEQ/L (98-107); CPK CREATINE PHOSPHOKINASE 599 U/L (26-192); CREATININE FOR GFR 0.77 MG/DL (0.55-1.30); GLOMERULAR FILTRATION RATE > 60.0 (>32); GLUCOSE, FASTING 140 MG/DL (70-100); POTASSIUM SERUM 4.7 MEQ/L (3.5-5.1); SODIUM LEVEL 143 MEQ/L (136-145)
[2020-11-27] MEDS ORDERED: MIDAZOLAM INJ 2MG/2ML VIAL (J2250 PER 1MG) As Ordered ONE (13:54)
[2020-11-27] MEDS ORDERED: KETAMINE HCL 200 MG/20 ML VIAL As Ordered ONE (13:54)
[2020-11-27] MEDS ORDERED: fentaNYL 100 MCG/2 ML INJECTION (J3010) As Ordered ONE (13:57)
[2020-11-27] MEDS ORDERED: ROCURONIUM BROMIDE 50 MG/5 ML VIAL As Ordered ONE (13:57)
[2020-11-27] MEDS ORDERED: propofoL 200 MG/20 ML VIAL As Ordered ONE (13:57)
[2020-11-27] MEDS ORDERED: LIDOCAINE 2% 100MG/5ML SDV (FOR ANES.) As Ordered ONE (13:57)
[2020-11-27] MEDS ORDERED: VANCOMYCIN 1000MG/20ML VIAL As Ordered ONE (14:39)
[2020-11-27] MEDS ORDERED: VANCOMYCIN HCL 1,000 MG, VIAL MATE ADAPTER 1 EACH in NS 250 ML IV ONE (15:00)
[2020-11-27] MEDS ORDERED: BUPIVACAINE/EPIN 0.5% 30 ML VIAL As Ordered ONE (15:03)
[2020-11-27] MEDS ORDERED: PHENYLephrine 500MCG 5ML (100MCG/ML) SYRINGE As Ordered ONE ×2 (15:36→15:43)
[2020-11-27] MEDS ORDERED: ePHEDrine SULFATE 25 MG/5 ML(5MG/ML) SYRINGE As Ordered ONE (15:42)
[2020-11-27] MEDS ORDERED: ONDANSETRON 4MG/2ML VIAL As Ordered ONE (16:07)
[2020-11-27] MEDS ORDERED: ACETAMINOPHEN 1000MG 100ML IV BTL (OFIRMEV) (J0131 PER 10MG) As Ordered ONE (16:07)
[2020-11-27] MEDS ORDERED: SUGAMMADEX SODIUM 500 MG/5 ML VIAL (BRIDION) As Ordered ONE (16:12)
--- NOTE | 2020-11-27 17:30 | ROOPDOC ---
[facility] Report Of Operation Report of Operation DATE OF PROCEDURE: 11/27/20 PREPROCEDURE DIAGNOSES: [1. Right displaced intertrochanteric hip fracture 2. Right distal radius fracture]. POSTPROCEDURE DIAGNOSES: [Same]. PROCEDURE PERFORMED: [1. Right cephalomedullary nail. Deysi gamma nail 10 x 360 mm, 100 mm hip screw, 1 distal locking screw 2. Close reduction under fluoroscopy and application of short arm cast]. SURGEON: [Nissa chandler], MANAGER [employer]: [staging technician], ANESTHESIA: [General]. ESTIMATED BLOOD LOSS: Approximately [100 mils] mL. COMPLICATIONS: [None]. SPECIMENS REMOVED: [None] DESCRIPTION OF PROCEDURE: [Patient was met in the holding area. Consent was confirmed. Imaging was confirmed. 1 g of vancomycin was ordered preoperatively. Patient was seen by anesthesia. Patient is walked into room [facility] at [facility]. We proceeded with the right cephalomedullary nail as a first procedure. She was given general anesthetic in usual manner. She was then transferred onto the fracture table in the supine position. The right leg was put into gentle traction and internal fixation. The left leg was abducted and extended along the central pulse of the fracture table. It was immobilized and well-padded. All bony prominences are well-padded. The right arm was placed across her chest. Post was placed in a perineum. X-rays were done AP lateral obliques to confirm the best anatomic reduction. Once we thought we had a good reduction patient was prepped and draped in usual manner. Under fluoroscopic guidance 2 inch incision was made 2 inches proximal to the GT. Threaded K wire was placed just medial to the GT down into the intramedullary canal under fluoroscopic guidance. The fascia and abductors were then divided on either side of the wire. Soft tissue guide over the wire. The entry reamer was then used over the wire to enter into the femoral canal. Ball-tipped wire was placed down the canal towards the knee under fluoroscopic guidance. The femur was then measured to receive a 360 mm nail. Over the ball- tipped guidewire the femur was then reamed incrementally to 12 mm to receive the 10 mm nail. Patient did not have much chatter and seemed very osteoporotic with reaming. The 360 mm Deysi gamma nail was then advanced over the K wire under fluoroscopic guidance. Care was taken distally to ensure no notching of the anterior cortex. Nail was advanced. Radiolucent guide was then used and 125 degrees. The guides were advanced to the lateral cortex through a stab incision. Guidewire was placed in the center of the femoral head. It was measured to receive 100 mm hip screw. Lateral cortex femoral neck and femoral head were then reamed to receive the hip screw. Hip screw was placed over the threaded guidewire with no complications. Traction was released. Intertrochanteric fracture was compressed. Interference screw was locked proximally. Now focused on distal locking screws. You obtain it true lateral of the knee and using perfect [place] technique we drilled the proximal static screw. First made a stab incision and cleared the soft tissue with a snap. Drill the static hole and placed 45 mm distal locking screw through a stab incision Final x-rays were taken and we thought we had a good reduction. Wounds were irrigated with copious amounts of saline. Closed with 2-0 Vicryl, vida and a sterile dressing applied. Patient was then taken down from the traction and placed in the supine position on the traction table. We now focused on the right distal radius. With gentle traction and dorsal pressure over the posterior cortex the fracture was reduced. We used fluoroscopy to ensure good reduction of the fracture. We managed her restore radial inclination and her fracture was now at neutral. We thought this was a good position. We then applied a well molded plaster Bernarda cast to the right upper extremity. Final x-rays were taken and we thought we had a good reduction of the fracture. Plan: 1. Patient may be weightbearing as tolerated right lower extremity 2. Patient nonweightbearing right upper extremity. Sling for comfort. Encourage range of motion of elbow and fingers. 3. Repeat x-rays right distal radius 1 week, repeat x-rays right femur 1 week 4. DVT prophylaxis as per medicine. 5. Patient urine sample was sent for culture and sensitivity. Medicine to follow-up on culture and sensitivity and treat accordingly. 6. Vancomycin 1 g IV every 12 hours 2 doses]. 7. Vida out 14 days postop NISSA COLVIN MD Nov 27, 2020 17:30
--- NOTE | 2020-11-27 17:36 | ECGEPIP ---
[facility] - ED Test Date: 2020-11-26 Pat Name: SHWETA OSCAR Department: Room: - Gender: Female Quality And Reliability Engineer: SYNCOPE : 1935 Requested By: SURINDER Ayala Order Number: [id number] Reading MD: Ann-Marie Egan Measurements Intervals [place] Rate: 64 P: 77 MN: 84 QRS: 26 QRSD: 136 T: 47 QT: 458 QTc: 472 Interpretive Statements Sinus rhythm with short MN Right bundle branch block prolonged qtc No prior Electronically Signed on 11-27-2020 17:35:54 EDT by Ann-Marie Egan
--- NOTE | 2020-11-27 17:52 | IPNPDOC ---
Subjective Date Seen The patient was seen on 11/27/20. Subjective Chief Complaint/HPI Mrs. Edward is an 85-year-old female with history of breast cancer status post chemo and radiation and hypothyroidism who presents with a mechanical fall resulting in a right femur fracture and right distal radius fracture. Patient was seen in the morning prior to her operation. She denies any chest pain or dyspnea but reported right hip pain. Patient was taken to the OR this afternoon for right cephalomedullary nail for right femur fracture and closed reduction under fluoroscopy of right distal radius fracture. Objective Physical Examination General Exam: Positive: Alert, Cooperative, Mild Distress Eye Exam: Negative: Sclera icteric Chest Exam: Positive: Clear to auscultation Heart Exam: Positive: Rate Normal, Regular Rhythm Abdomen Exam: Positive: Normal bowel sounds, Soft; Negative: Tenderness Extremity Exam: Negative: Edema Skin Exam: Positive: Other skin issue (scalp abrasion, r wist bruising ) Neuro Exam: Positive: Normal Speech Psych Exam: Positive: Mental status NL, Mood NL Assessment /Plan Assessment Mrs. Edward is an 85-year-old female with history of breast cancer status post chemo and radiation and hypothyroidism who presents with a mechanical fall resulting in a right femur fracture and right distal radius fracture. Orthopedic surgery was consulted. Dr. Tidwell took patient to the OR on 11/27/2020 for right cephalomedullary nail for right femur fracture and closed reduction under fluoroscopy for right distal radius fracture. Plan/VTE VTE Prophylaxis Ordered?: Yes Plan 1. Right femur fracture secondary to mechanical fall Orthopedic surgery consulted, recommendations appreciated Patient went to the OR for right cephalomedullary nail on 11/27/2020 2. Right distal radius fracture Orthopedic surgery consulted, recommendations appreciated Patient went to the OR for right closed reduction under fluoroscopy with short arm cast on 11/27/2020 3. Hypothyroidism Continue levothyroxine 4. Glaucoma Continue bimatoprost 5. DVT prophylaxis Heparin subcu Disposition: Pending clinical improvement VS, I&O, 24H, Fishbone Vital Signs/I&O Vital Signs Date Time Temp Pulse Resp B/P (MAP) Pulse Ox O2 Delivery O2 Flow Rate FiO2 11/27/20 13:30 99.5 79 18 140/76 (97) 94 Room Air I&O- Last 24 Hours up to 6 AM 11/27/20 06:00 Intake Total 400 ml Output Total 150 ml Balance 250 ml Laboratory Data 24H LABS Laboratory Tests 2 10/5/21 18:10: Coronavirus (COVID-19)(PCR) NEGATIVE, Influenza Type A (RT-PCR) NEGATIVE, Influenza Type B (RT-PCR) NEGATIVE, Respiratory Syncytial Virus (PCR) NEGATIVE 11/26/20 18:59: Magnesium Level 2.0 11/26/20 22:57: Anion Gap 3L, Glomerular Filtration Rate > 60.0, Calcium Level 8.8, Total Creatine Kinase 578H 11/27/20 00:00: 11/27/20 03:22: Anion Gap 2L, Glomerular Filtration Rate > 60.0, Calcium Level 8.2L, Total Creatine Kinase 616H 11/27/20 08:00: Anion Gap 1L, Glomerular Filtration Rate > 60.0, Calcium Level 8.1L, Total Creatine Kinase 599H, Immature Granulocyte % (Auto) 0.4, Neutrophils (%) (Auto) 77.6H, Lymphocytes (%) (Auto) 11.5L, Monocytes (%) (Auto) 10.4H, Eosinophils (%) (Auto) 0.0, Basophils (%) (Auto) 0.1, Neutrophils # (Auto) 5.3, Lymphocytes # (Auto) 0.8L, Monocytes # (Auto) 0.7, Eosinophils # (Auto) 0.0, Basophils # (Auto) 0.0, Nucleated Red Blood Cells % (auto) 0.0 11/27/20 17:23: CBC/BMP Laboratory Tests 11/26/20 22:57 11/27/20 03:22 11/27/20 08:00 Microbiology Microbiology 11/27/20 Urine Culture, Received Pending LON FU DO Nov 27, 2020 17:52
[2020-11-27] MEDS ORDERED: fentaNYL 100 MCG/2 ML INJECTION (J3010) IV PRN (17:55)
[2020-11-27] MEDS ORDERED: LR 1,000 ML IV SCH (17:55)
[2020-11-27] MEDS ORDERED: ONDANSETRON 4MG/2ML VIAL IV PRN (17:55)
[2020-11-27 18:04] LABS: BLOOD UREA NITROGEN 22 MG/DL (7-18); CALCIUM LEVEL 7.7 MG/DL (8.8-10.2); CARBON DIOXIDE LEVEL 27 MEQ/L (21-32); CHLORIDE LEVEL 112 MEQ/L (98-107); CPK CREATINE PHOSPHOKINASE 443 U/L (26-192); CREATININE FOR GFR 0.65 MG/DL (0.55-1.30); GLOMERULAR FILTRATION RATE > 60.0 (>32); GLUCOSE, FASTING 149 MG/DL (70-100); POTASSIUM SERUM 3.9 MEQ/L (3.5-5.1); SODIUM LEVEL 141 MEQ/L (136-145)
[2020-11-27] MEDS: DOCUSATE SODIUM 100MG CAPSULE PO SCH (20:37)
[2020-11-27] MEDS: SENNA 8.6 MG TAB (SENOKOT) PO SCH (20:37)
[2020-11-27 22:35] LABS: TROPONIN I < 0.02 NG/ML (< 0.10)
[2020-11-28] MEDS: VANCOMYCIN HCL 750 MG, VIAL MATE ADAPTER 1 EACH in NS 250 ML IV SCH ×2 (03:25→15:18)
[2020-11-28 03:30] VITALS: BP 130/60
[2020-11-28] MEDS: HEPARIN SOD (PORCINE) 5000UNITS/ML 1ML VIAL/SYRINGE SC SCH ×3 (06:51→21:26)
[2020-11-28] MEDS: MORPHINE 2 MG/ML 1ML VIAL (J2270) IV PRN (06:51)
[2020-11-28] MEDS: LEVOTHYROXINE 88MCG TABLET (0.088 MG) PO SCH (06:51)
[2020-11-28 07:07] LABS: BASO % 0.5 % (0.0-1.0); EOS % 0.3 % (0.0-3.0); HEMATOCRIT 29.9 % (36.0-47.0); HEMOGLOBIN 9.7 g/dl (12.0-15.5); LYMPH # 0.6 10^3/uL (1.5-5.0); LYMPH % 9.4 % (24.0-44.0); MEAN CORPUSCULAR HEMOGLOBIN 31.6 pg (27.0-33.0); MEAN CORPUSCULAR HGB CONC 32.4 g/dl (32.0-36.5); MEAN CORPUSCULAR VOLUME 97.4 fl (80.0-96.0); MONO # 0.5 10^3/uL (0.0-0.8); MONO % 8.2 % (2.0-8.0); NEUTROPHILS # 5.4 10^3/uL (1.5-8.5); NEUTROPHILS % 81.3 % (36.0-66.0); PLATELET COUNT, AUTOMATED 121 10^3/uL (150-450); RED BLOOD COUNT 3.07 10^6/uL (4.00-5.40); WHITE BLOOD COUNT 6.6 10^3/uL (4.0-10.0)
[2020-11-28 07:33] LABS: BLOOD UREA NITROGEN 21 MG/DL (7-18); CALCIUM LEVEL 7.8 MG/DL (8.8-10.2); CARBON DIOXIDE LEVEL 27 MEQ/L (21-32); CHLORIDE LEVEL 111 MEQ/L (98-107); CREATININE FOR GFR 0.62 MG/DL (0.55-1.30); GLOMERULAR FILTRATION RATE > 60.0 (>32); GLUCOSE, FASTING 125 MG/DL (70-100); SODIUM LEVEL 142 MEQ/L (136-145); TROPONIN I < 0.02 NG/ML (< 0.10)
[2020-11-28] MEDS: MULTIVITAMINS/MINERALS THERAP 1 TAB PO SCH (09:00)
[2020-11-28] MEDS: CALCIUM/VITAMIN D 500 MG TAB PO SCH ×2 (09:00→21:26)
[2020-11-28] MEDS: ASPIRIN 81MG ENTERIC TABLET PO SCH (09:00)
[2020-11-28] MEDS: FEXOFENADINE 60 MG TAB PO SCH (09:00)
[2020-11-28] MEDS: OMEGA-3 1000MG CAPSULE PO SCH (09:00)
--- NOTE | 2020-11-28 09:16 | REP ---
INDICATION: RT HIP FX GAMMA NAIL. COMPARISON: None. TECHNIQUE: Six views. 156.6 seconds of fluoroscopy time is reported FINDINGS: A sequence of 6 last image hold fluoroscopically obtained spot radiographs of the right femur document open reduction internal fixation procedure. IMPRESSION: Procedural imaging. <Electronically signed by Pablo Moya > 11/28/20 0983
--- NOTE | 2020-11-28 09:17 | REP ---
INDICATION: RIGHT DISTAL RADIUS FRACTURE. COMPARISON: None. TECHNIQUE: Three views. 14.9 seconds of fluoroscopy time is reported. FINDINGS: A sequence of 3 last image hold fluoroscopically obtained spot radiographs of the right wrist document closed reduction distal radial fracture. Final films in cast material. IMPRESSION: Procedural imaging. <Electronically signed by Pablo Moya > 11/28/20 0982
--- NOTE | 2020-11-28 09:35 | IPNPDOC ---
Text Note Date of Service The patient was seen on 11/28/20. NOTE Patient seen POD 1 for R proximal femur ORIF and R closed reduction wrist fra cture. Patient reports that she is doing well, no questions or concerns. Reports her pain is well controlled with her medications. Dressings are clean, dry and intact. Grossly neurovascularly intact with good sensation. Patient is able to dorsiflex and plantar flex the right foot and move all toes. Palpable DP and PT pulses. Right forearm cast in place, Capillary refill < 2 seconds, sensation to ulnar, median and radial nerves intact to light tough. Motor to ulnar, median, radial and AI nerves intact. Patient is able to flex and extend all digits. Intraoperative imaging was reviewed by Dr Menard and found to be acceptable. Patient will be managed by hospitalist service with anticipated transfer to adult rehab. Follow up in clinic 1 week unless still inpatient. VS,Fishbone, I+O VS, Fishbone, I+O Laboratory Tests 11/27/20 17:23 11/28/20 06:46 Vital Signs Date Time Temp Pulse Resp B/P (MAP) Pulse Ox O2 Delivery O2 Flow Rate FiO2 11/28/20 07:01 18 11/28/20 03:30 97.7 82 130/60 (83) 98 Room Air 11/27/20 17:32 10.0 I&O- Last 24 Hours up to 6 AM 11/28/20 05:59 Intake Total 1366 ml Output Total 350 ml Balance 1016 ml CONNOR BERNSTEIN Nov 28, 2020 09:05
[2020-11-28] MEDS: DICLOFENAC EPOLAMINE 1.3 % PATCH TOP SCH ×2 (09:59→21:00)
[2020-11-28 10:00] VITALS: BP 115/51
--- NOTE | 2020-11-28 15:13 | IPNPDOC ---
Subjective Date Seen The patient was seen on 11/28/20. Subjective Chief Complaint/HPI Mrs. Edward is an 85-year-old female with history of breast cancer status post chemo and radiation and hypothyroidism who presents with a mechanical fall resulting in a right femur fracture and right distal radius fracture. Patient went to the OR on 11/27/2020 for repairs of the right femur and right radius. Patient was seen in the morning. She is feeling better. Denies chest pain or dyspnea. Still had pain in her right hip. When I saw her her neck appeared to be hyperextended. She is able to flex her head slightly forward. Left arm physical therapy asst are strong. She is able to wiggle her right fingers and bilateral toes. PT, OT, and ST evaluated patient. Objective Physical Examination General Exam: Positive: Alert, Cooperative Eye Exam: Negative: Sclera icteric Chest Exam: Positive: Clear to auscultation Heart Exam: Positive: Rate Normal, Regular Rhythm Abdomen Exam: Positive: Normal bowel sounds, Soft; Negative: Tenderness Extremity Exam: Positive: Other (Right arm in cast); Negative: Edema Neuro Exam: Positive: Normal Speech, Other (Good physical therapy asst strength of the left hand. Able to wiggle right fingers and bilateral toes.) Psych Exam: Positive: Mental status NL, Mood NL Assessment /Plan Assessment Mrs. Edward is an 85-year-old female with history of breast cancer status post chemo and radiation and hypothyroidism who presents with a mechanical fall resulting in a right femur fracture and right distal radius fracture. Orthopedic surgery was consulted. Dr. Tidwell took patient to the OR on 11/27/2020 for right cephalomedullary nail for right femur fracture and closed reduction under fluoroscopy for right distal radius fracture. Patient will need PT, OT, and ST. Patient will need rehab. Plan/VTE VTE Prophylaxis Ordered?: Yes Plan 1. Right femur fracture secondary to mechanical fall Orthopedic surgery consulted, recommendations appreciated Patient went to the OR for right cephalomedullary nail on 11/27/2020 2. Right distal radius fracture Orthopedic surgery consulted, recommendations appreciated Patient went to the OR for right closed reduction under fluoroscopy with short arm cast on 11/27/2020 3. Hypothyroidism Continue levothyroxine 4. Glaucoma Continue bimatoprost 5. DVT prophylaxis Heparin subcu Disposition: Patient will need rehab VS, I&O, 24H, Fishbone Vital Signs/I&O Vital Signs Date Time Temp Pulse Resp B/P (MAP) Pulse Ox O2 Delivery O2 Flow Rate FiO2 11/28/20 10:00 98.4 89 17 115/51 (72) 99 Room Air 11/27/20 17:32 10.0 I&O- Last 24 Hours up to 6 AM 11/28/20 06:00 Intake Total 1266 ml Output Total 500 ml Balance 766 ml Laboratory Data 24H LABS Laboratory Tests 2 11/27/20 17:23: Anion Gap 2L, Glomerular Filtration Rate > 60.0, Calcium Level 7.7L, Total Creatine Kinase 443H, Troponin I < 0.02 11/28/20 06:46: Anion Gap 4L, Glomerular Filtration Rate > 60.0, Calcium Level 7.8L, Troponin I < 0.02, Immature Granulocyte % (Auto) 0.3, Neutrophils (%) (Auto) 81.3H, Lymphocytes (%) (Auto) 9.4L, Monocytes (%) (Auto) 8.2H, Eosinophils (%) (Auto) 0.3, Basophils (%) (Auto) 0.5, Neutrophils # (Auto) 5.4, Lymphocytes # (Auto) 0.6L, Monocytes # (Auto) 0.5, Eosinophils # (Auto) 0.0, Basophils # (Auto) 0.0, Nucleated Red Blood Cells % (auto) 0.0 CBC/BMP Laboratory Tests 11/27/20 17:23 11/28/20 06:46 Microbiology Microbiology 11/27/20 Urine Culture, Received Pending LON FU DO Nov 28, 2020 15:13
[2020-11-28 16:00] VITALS: BP 114/57
[2020-11-28] MEDS: DOCUSATE SODIUM 100MG CAPSULE PO SCH (21:26)
[2020-11-28] MEDS: SENNA 8.6 MG TAB (SENOKOT) PO SCH (21:26)
[2020-11-28] MEDS: ACETAMINOPHEN TAB 650MG DOSE (2X325MG) PO PRN (21:27)
[2020-11-28 22:00] VITALS: BP 130/60
[2020-11-29] MEDS: LEVOTHYROXINE 88MCG TABLET (0.088 MG) PO SCH (05:56)
[2020-11-29] MEDS: HEPARIN SOD (PORCINE) 5000UNITS/ML 1ML VIAL/SYRINGE SC SCH ×3 (05:57→22:13)
[2020-11-29] MEDS: ACETAMINOPHEN TAB 650MG DOSE (2X325MG) PO PRN (05:57)
--- NOTE | 2020-11-29 05:57 | IPNPDOC ---
Text Note Date of Service The patient was seen on 11/29/20. NOTE Patient seen POD 2 for R proximal femur ORIF and R closed reduction wrist fra cture. Patient reports that she is feeling a little better today. Reports getting up to her feet yesterday with PT assist. This caused some pain but was tolerable. Patient denies any numbness or tingling in her right hand. Dressings are clean, dry and intact with no staining. Grossly neurovascularly intact with good sensation. Patient is able to dorsiflex and plantar flex the right foot and move all toes. DP and PT pulses present. Right forearm cast remains in place without evidence of loosening or increased swelling of the extremity. Sensation to ulnar, median and radial nerves intact to light tough. Motor to ulnar, median, radial and AI nerves intact. Patient is able to flex and extend all digits. Capillary refill < 2 seconds. Overall, the patient is doing well, will continue with plan for rehab and follow-up. VS,Fishbone, I+O VS, Fishbone, I+O Laboratory Tests 11/28/20 06:46 Vital Signs Date Time Temp Pulse Resp B/P (MAP) Pulse Ox O2 Delivery O2 Flow Rate FiO2 11/28/20 22:00 99.9 87 24 130/60 (83) 97 Room Air 11/27/20 17:32 10.0 I&O- Last 24 Hours up to 6 AM 11/29/20 06:00 Intake Total 960 ml Output Total 350 ml Balance 610 ml CONNOR BERNSTEIN Nov 29, 2020 05:49
[2020-11-29 06:00] VITALS: BP 129/57
[2020-11-29 06:48] LABS: BASO % 0.3 % (0.0-1.0); EOS # 0.2 10^3/uL (0.0-0.5); HEMATOCRIT 29.5 % (36.0-47.0); HEMOGLOBIN 9.6 g/dl (12.0-15.5); LYMPH # 0.9 10^3/uL (1.5-5.0); LYMPH % 12.6 % (24.0-44.0); MEAN CORPUSCULAR HEMOGLOBIN 32.3 pg (27.0-33.0); MEAN CORPUSCULAR HGB CONC 32.5 g/dl (32.0-36.5); MEAN CORPUSCULAR VOLUME 99.3 fl (80.0-96.0); MONO # 0.7 10^3/uL (0.0-0.8); MONO % 9.1 % (2.0-8.0); NEUTROPHILS # 5.6 10^3/uL (1.5-8.5); NEUTROPHILS % 75.6 % (36.0-66.0); PLATELET COUNT, AUTOMATED 115 10^3/uL (150-450); RED BLOOD COUNT 2.97 10^6/uL (4.00-5.40); WHITE BLOOD COUNT 7.4 10^3/uL (4.0-10.0)
[2020-11-29 07:24] LABS: BLOOD UREA NITROGEN 23 MG/DL (7-18); CALCIUM LEVEL 7.7 MG/DL (8.8-10.2); CARBON DIOXIDE LEVEL 29 MEQ/L (21-32); CHLORIDE LEVEL 110 MEQ/L (98-107); CREATININE FOR GFR 0.67 MG/DL (0.55-1.30); GLOMERULAR FILTRATION RATE > 60.0 (>32); GLUCOSE, FASTING 99 MG/DL (70-100); POTASSIUM SERUM 4.2 MEQ/L (3.5-5.1); SODIUM LEVEL 142 MEQ/L (136-145); TROPONIN I < 0.02 NG/ML (< 0.10)
[2020-11-29] MEDS ORDERED: ACETAMINOPHEN TAB 650MG DOSE (2X325MG) PO PRN (08:00)
[2020-11-29] MEDS: ASPIRIN 81MG ENTERIC TABLET PO SCH (09:01)
[2020-11-29] MEDS: OMEGA-3 1000MG CAPSULE PO SCH (09:01)
[2020-11-29] MEDS: cefTRIAXone SOD 1 GM in D5W MINI-BAG PLUS 50 ML IV SCH (09:01)
[2020-11-29] MEDS: PERCOCET 5MG/325MG TAB PO PRN ×2 (09:01→14:38)
[2020-11-29] MEDS: MULTIVITAMINS/MINERALS THERAP 1 TAB PO SCH (09:01)
[2020-11-29] MEDS: CALCIUM/VITAMIN D 500 MG TAB PO SCH ×2 (09:01→20:40)
[2020-11-29] MEDS: FEXOFENADINE 60 MG TAB PO SCH (09:01)
[2020-11-29] MEDS: DICLOFENAC EPOLAMINE 1.3 % PATCH TOP SCH ×2 (09:02→20:41)
[2020-11-29 14:00] VITALS: BP 118/68
--- NOTE | 2020-11-29 14:47 | IPNPDOC ---
Subjective Date Seen The patient was seen on 11/29/20. Subjective Chief Complaint/HPI Mrs. Edward is an 85-year-old female with history of breast cancer status post chemo and radiation and hypothyroidism who presents with a mechanical fall resulting in a right femur fracture and right distal radius fracture. Patient went to the OR on 11/27/2020 for repairs of the right femur and right radius. Patient urine culture returned with pansensitive E. coli. Patient has allergies to penicillins, ciprofloxacin, and nitrofurantoin. We will start patient on ceftriaxone. Otherwise patient was seen this morning. Denies chest pain or d yspnea. The pain in her hip and arm are better. She is able to move her neck a little more Objective Physical Examination General Exam: Positive: Alert, Cooperative Eye Exam: Negative: Sclera icteric Chest Exam: Positive: Clear to auscultation Heart Exam: Positive: Rate Normal, Regular Rhythm Abdomen Exam: Positive: Normal bowel sounds, Soft; Negative: Tenderness Extremity Exam: Negative: Edema Neuro Exam: Positive: Normal Speech, Other (Good fabric stretcher strength in the left hand. Able to wiggle right fingers and bilateral toes) Psych Exam: Positive: Mental status NL, Mood NL Assessment /Plan Assessment Mrs. Edward is an 85-year-old female with history of breast cancer status post chemo and radiation and hypothyroidism who presents with a mechanical fall res ulting in a right femur fracture and right distal radius fracture. Orthopedic surgery was consulted. Dr. Tidwell took patient to the OR on 11/27/2020 for right cephalomedullary nail for right femur fracture and closed reduction under fluoroscopy for right distal radius fracture. Patient will need PT, OT, and ST. Patient will need rehab. Plan/VTE VTE Prophylaxis Ordered?: Yes Plan 1. Right femur fracture secondary to mechanical fall Orthopedic surgery consulted, recommendations appreciated Patient went to the OR for right cephalomedullary nail on 11/27/2020 2. Right distal radius fracture Orthopedic surgery consulted, recommendations appreciated Patient went to the OR for right closed reduction under fluoroscopy with short arm cast on 11/27/2020 3. Pansensitive E. coli UTI Due to patient's allergies, will start patient on ceftriaxone Ceftriaxone day 1 4. Hypothyroidism Continue levothyroxine 5.. Glaucoma Continue bimatoprost 6. DVT prophylaxis Heparin subcu Disposition: Patient will need rehab VS, I&O, 24H, Fishbone Vital Signs/I&O Vital Signs Date Time Temp Pulse Resp B/P (MAP) Pulse Ox O2 Delivery O2 Flow Rate FiO2 11/29/20 14:38 18 Room Air 11/29/20 06:00 97.9 76 129/57 (81) 99 11/27/20 17:32 10.0 I&O- Last 24 Hours up to 6 AM 11/29/20 06:00 Intake Total 960 ml Output Total 575 ml Balance 385 ml Laboratory Data 24H LABS Laboratory Tests 2 11/29/20 06:27: Immature Granulocyte % (Auto) 0.4, Neutrophils (%) (Auto) 75.6H, Lymphocytes (%) (Auto) 12.6L, Monocytes (%) (Auto) 9.1H, Eosinophils (%) (Auto) 2.0, Basophils (%) (Auto) 0.3, Neutrophils # (Auto) 5.6, Lymphocytes # (Auto) 0.9L, Monocytes # (Auto) 0.7, Eosinophils # (Auto) 0.2, Basophils # (Auto) 0.0, Nucleated Red Blood Cells % (auto) 0.0, Anion Gap 3L, Glomerular Filtration Rate > 60.0, Calcium Level 7.7L, Troponin I < 0.02 CBC/BMP Laboratory Tests 11/29/20 06:27 Microbiology Microbiology 11/27/20 Urine Culture - Final, Complete Escherichia Coli LON FU DO Nov 29, 2020 14:47
[2020-11-29] MEDS: SENNA 8.6 MG TAB (SENOKOT) PO SCH (20:40)
[2020-11-29] MEDS: DOCUSATE SODIUM 100MG CAPSULE PO SCH (20:40)
[2020-11-29 22:00] VITALS: BP 125/53
[2020-11-30] MEDS: PERCOCET 5MG/325MG TAB PO PRN ×3 (01:24→15:01)
[2020-11-30 06:00] VITALS: BP 136/57
[2020-11-30 06:16] LABS: BASO % 0.1 % (0.0-1.0); EOS # 0.1 10^3/uL (0.0-0.5); EOS % 1.3 % (0.0-3.0); HEMATOCRIT 27.2 % (36.0-47.0); HEMOGLOBIN 8.7 g/dl (12.0-15.5); LYMPH # 1.1 10^3/uL (1.5-5.0); LYMPH % 13.9 % (24.0-44.0); MEAN CORPUSCULAR HEMOGLOBIN 31.4 pg (27.0-33.0); MEAN CORPUSCULAR VOLUME 98.2 fl (80.0-96.0); MONO # 0.6 10^3/uL (0.0-0.8); MONO % 7.8 % (2.0-8.0); NEUTROPHILS # 6.1 10^3/uL (1.5-8.5); NEUTROPHILS % 76.5 % (36.0-66.0); PLATELET COUNT, AUTOMATED 162 10^3/uL (150-450); RED BLOOD COUNT 2.77 10^6/uL (4.00-5.40); WHITE BLOOD COUNT 7.9 10^3/uL (4.0-10.0)
[2020-11-30] MEDS: HEPARIN SOD (PORCINE) 5000UNITS/ML 1ML VIAL/SYRINGE SC SCH ×3 (06:19→22:03)
[2020-11-30] MEDS: LEVOTHYROXINE 88MCG TABLET (0.088 MG) PO SCH (06:19)
[2020-11-30 06:41] LABS: BLOOD UREA NITROGEN 25 MG/DL (7-18); CALCIUM LEVEL 7.7 MG/DL (8.8-10.2); CARBON DIOXIDE LEVEL 28 MEQ/L (21-32); CHLORIDE LEVEL 107 MEQ/L (98-107); CREATININE FOR GFR 0.65 MG/DL (0.55-1.30); GLOMERULAR FILTRATION RATE > 60.0 (>32); GLUCOSE, FASTING 113 MG/DL (70-100); POTASSIUM SERUM 4.4 MEQ/L (3.5-5.1); SODIUM LEVEL 139 MEQ/L (136-145)
[2020-11-30 08:46] LABS: FERRITIN 210 NG/ML (8-252); IRON (FE) 18 UG/DL (50-170); LDH LACTATE DEHYDROGENASE 249 U/L (84-246); PERCENT SATURATION 9.3 % (13.2-45.0); TOTAL IRON BINDING CAPACITY 194 UG/DL (250-450)
[2020-11-30] MEDS: CALCIUM/VITAMIN D 500 MG TAB PO SCH ×2 (09:00→22:02)
[2020-11-30] MEDS: OMEGA-3 1000MG CAPSULE PO SCH (09:00)
[2020-11-30] MEDS: MULTIVITAMINS/MINERALS THERAP 1 TAB PO SCH (09:00)
[2020-11-30] MEDS: DICLOFENAC EPOLAMINE 1.3 % PATCH TOP SCH ×2 (09:00→22:03)
[2020-11-30] MEDS: ASPIRIN 81MG ENTERIC TABLET PO SCH (09:00)
[2020-11-30] MEDS: cefTRIAXone SOD 1 GM in D5W MINI-BAG PLUS 50 ML IV SCH (09:01)
[2020-11-30] MEDS: FEXOFENADINE 60 MG TAB PO SCH (09:03)
[2020-11-30 12:41] LABS: HEMATOCRIT 25.2 % (36.0-47.0); HEMOGLOBIN 8.3 g/dl (12.0-15.5); MEAN CORPUSCULAR HEMOGLOBIN 32.2 pg (27.0-33.0); MEAN CORPUSCULAR HGB CONC 32.9 g/dl (32.0-36.5); MEAN CORPUSCULAR VOLUME 97.7 fl (80.0-96.0); PLATELET COUNT, AUTOMATED 147 10^3/uL (150-450); RED BLOOD COUNT 2.58 10^6/uL (4.00-5.40); WHITE BLOOD COUNT 7.8 10^3/uL (4.0-10.0)
[2020-11-30 14:00] VITALS: BP 121/52
--- NOTE | 2020-11-30 17:19 | IPNPDOC ---
Subjective Date Seen The patient was seen on 11/30/20. Subjective Chief Complaint/HPI Mrs. Edward is an 85-year-old female with history of breast cancer status post chemo and radiation and hypothyroidism who presents with a mechanical fall resulting in a right femur fracture and right distal radius fracture. Patient went to the OR on 11/27/2020 for repairs of the right femur and right radius. This morning she is feeling better. Denies chest pain or dyspnea. She is able to move her neck a little more. Otherwise, patient was exposed to healthcare worker positive for Covid on 11/29/2020. She will be in quarantine until 12/10/2020 Objective Physical Examination General Exam: Positive: Alert, Cooperative Eye Exam: Negative: Sclera icteric Chest Exam: Positive: Clear to auscultation Heart Exam: Positive: Rate Normal, Regular Rhythm Abdomen Exam: Positive: Normal bowel sounds, Soft; Negative: Tenderness Extremity Exam: Negative: Edema Neuro Exam: Positive: Normal Speech, Other (Good load manager strength in the left hand. Able to wiggle right fingers and bilateral toes) Psych Exam: Positive: Mental status NL, Mood NL Assessment /Plan Assessment Mrs. Edward is an 85-year-old female with history of breast cancer status post chemo and radiation and hypothyroidism who presents with a mechanical fall resulting in a right femur fracture and right distal radius fracture. Orthopedic surgery was consulted. Dr. Tidwell took patient to the OR on 11/27/2020 for right cephalomedullary nail for right femur fracture and closed reduction under fluoroscopy for right distal radius fracture. Patient will need PT, OT, and ST. Patient will need rehab. Plan/VTE VTE Prophylaxis Ordered?: Yes Plan 1. Right femur fracture secondary to mechanical fall Orthopedic surgery consulted, recommendations appreciated Patient went to the OR for right cephalomedullary nail on 11/27/2020 2. Right distal radius fracture Orthopedic surgery consulted, recommendations appreciated Patient went to the OR for right closed reduction under fluoroscopy with short arm cast on 11/27/2020 3. Pansensitive E. coli UTI Due to patient's allergies, will start patient on ceftriaxone Ceftriaxone day 2 4. Hypothyroidism Continue levothyroxine 5.. Glaucoma Continue bimatoprost 6. Covid exposure Patient exposed to healthcare worker positive for Covid Patient placed on quarantine until 12/10/2020 7. DVT prophylaxis Heparin subcu Disposition: Patient will need rehab VS, I&O, [facility]H, [facility] Vital Signs/I&O Vital Signs Date Time Temp Pulse Resp B/P (MAP) Pulse Ox O2 Delivery O2 Flow Rate FiO2 11/30/20 15:40 18 11/30/20 14:00 98.3 73 121/52 (75) 96 Room Air 11/27/20 17:32 10.0 I&O- Last 24 Hours up to 6 AM 11/30/20 06:00 Intake Total 720 ml Output Total 530 ml Balance 190 ml Laboratory Data 24H LABS Laboratory Tests 2 11/30/20 05:56: Immature Granulocyte % (Auto) 0.4, Neutrophils (%) (Auto) 76.5H, Lymphocytes (%) (Auto) 13.9L, Monocytes (%) (Auto) 7.8, Eosinophils (%) (Auto) 1.3, Basophils (%) (Auto) 0.1, Neutrophils # (Auto) 6.1, Lymphocytes # (Auto) 1.1L, Monocytes # (Auto) 0.6, Eosinophils # (Auto) 0.1, Basophils # (Auto) 0.0, Reticulocyte # (auto) 39.8, Nucleated Red Blood Cells % (auto) 0.0, Percent Reticulocyte Count 1.5, Reticulocyte Hemoglobin Equivalent 31.2, Anion Gap 4L, Glomerular Filtration Rate > 60.0, Calcium Level 7.7L, Iron Level 18L, Total Iron Binding Capacity 194L, Transferrin % Saturation 9.3L, Ferritin 210, Lactate Dehydrogen ase 249H 11/30/20 12:26: Nucleated Red Blood Cells % (auto) 0.0 CBC/BMP Laboratory Tests 11/30/20 05:56 11/30/20 12:26 Microbiology Microbiology 11/27/20 Urine Culture - Final, Complete Escherichia Coli LON FU DO Nov 30, 2020 17:19
[2020-11-30] MEDS: ONDANSETRON 4MG/2ML VIAL IV PRN (17:39)
[2020-11-30 22:00] VITALS: BP 126/53
[2020-11-30] MEDS: DOCUSATE SODIUM 100MG CAPSULE PO SCH (22:02)
[2020-11-30] MEDS: SENNA 8.6 MG TAB (SENOKOT) PO SCH (22:03)
[2020-12-01] MEDS: PERCOCET 5MG/325MG TAB PO PRN ×2 (01:12→09:53)
[2020-12-01] MEDS: MORPHINE 2 MG/ML 1ML VIAL (J2270) IV PRN ×4 (01:53→23:28)
[2020-12-01 02:00] VITALS: BP 169/61
[2020-12-01] MEDS: ONDANSETRON 4MG/2ML VIAL IV PRN ×3 (02:00→20:53)
[2020-12-01 06:00] VITALS: BP 123/54
[2020-12-01] MEDS: HEPARIN SOD (PORCINE) 5000UNITS/ML 1ML VIAL/SYRINGE SC SCH ×3 (06:13→20:53)
[2020-12-01] MEDS: LEVOTHYROXINE 88MCG TABLET (0.088 MG) PO SCH (06:13)
[2020-12-01 07:55] LABS: BASO % 0.2 % (0.0-1.0); EOS # 0.1 10^3/uL (0.0-0.5); EOS % 2.1 % (0.0-3.0); HEMATOCRIT 25.5 % (36.0-47.0); HEMOGLOBIN 8.3 g/dl (12.0-15.5); LYMPH # 1.3 10^3/uL (1.5-5.0); LYMPH % 19.2 % (24.0-44.0); MEAN CORPUSCULAR HEMOGLOBIN 31.9 pg (27.0-33.0); MEAN CORPUSCULAR HGB CONC 32.5 g/dl (32.0-36.5); MEAN CORPUSCULAR VOLUME 98.1 fl (80.0-96.0); MONO # 0.7 10^3/uL (0.0-0.8); MONO % 10.4 % (2.0-8.0); NEUTROPHILS # 4.4 10^3/uL (1.5-8.5); NEUTROPHILS % 67.5 % (36.0-66.0); PLATELET COUNT, AUTOMATED 174 10^3/uL (150-450); WHITE BLOOD COUNT 6.6 10^3/uL (4.0-10.0)
[2020-12-01 08:26] LABS: BLOOD UREA NITROGEN 22 MG/DL (7-18); CALCIUM LEVEL 7.8 MG/DL (8.8-10.2); CARBON DIOXIDE LEVEL 30 MEQ/L (21-32); CHLORIDE LEVEL 110 MEQ/L (98-107); GLOMERULAR FILTRATION RATE > 60.0 (>32); GLUCOSE, FASTING 100 MG/DL (70-100); POTASSIUM SERUM 4.7 MEQ/L (3.5-5.1); SODIUM LEVEL 142 MEQ/L (136-145)
[2020-12-01] MEDS: FEXOFENADINE 60 MG TAB PO SCH (09:52)
[2020-12-01] MEDS: MULTIVITAMINS/MINERALS THERAP 1 TAB PO SCH ×2 (09:52→09:55)
[2020-12-01] MEDS: OMEGA-3 1000MG CAPSULE PO SCH ×2 (09:52→09:55)
[2020-12-01] MEDS: ASPIRIN 81MG ENTERIC TABLET PO SCH (09:52)
[2020-12-01] MEDS: CALCIUM/VITAMIN D 500 MG TAB PO SCH ×3 (09:52→21:00)
[2020-12-01] MEDS: DICLOFENAC EPOLAMINE 1.3 % PATCH TOP SCH ×2 (09:53→20:53)
[2020-12-01] MEDS: cefTRIAXone SOD 1 GM in D5W MINI-BAG PLUS 50 ML IV SCH (09:53)
[2020-12-01] MEDS: DICYCLOMINE 10 MG CAP PO PRN ×2 (13:46→22:36)
[2020-12-01 14:00] VITALS: BP 127/54
--- NOTE | 2020-12-01 16:56 | IPNPDOC ---
Subjective Date Seen The patient was seen on 12/01/20. Subjective Chief Complaint/HPI Mrs. Edward is an 85-year-old female with history of breast cancer status post chemo and radiation and hypothyroidism who presents with a mechanical fall resulting in a right femur fracture and right distal radius fracture. Patient went to the OR on 11/27/2020 for repairs of the right femur and right radius. Patient was exposed to healthcare worker positive for Covid on 11/29/2020. She will be in quarantine until 12/10/2020. Patient was seen this morning, sitting up and eating. Pain is improving. Denies chest pain or dyspnea. Objective Physical Examination General Exam: Positive: Alert, Cooperative Eye Exam: Negative: Sclera icteric Chest Exam: Positive: Clear to auscultation Heart Exam: Positive: Rate Normal, Regular Rhythm Abdomen Exam: Positive: Normal bowel sounds, Soft; Negative: Tenderness Extremity Exam: Negative: Edema Neuro Exam: Positive: Normal Speech, Other (Good rn post partum strength in the left hand. Able to wiggle right fingers and bilateral toes) Psych Exam: Positive: Mental status NL, Mood NL Assessment /Plan Assessment Mrs. Edward is an 85-year-old female with history of breast cancer status post chemo and radiation and hypothyroidism who presents with a mechanical fall resulting in a right femur fracture and right distal radius fracture. Orthopedic surgery was consulted. Dr. Tidwell took patient to the OR on 11/27/2020 for right cephalomedullary nail for right femur fracture and closed reduction under fluoroscopy for right distal radius fracture. Patient will need PT, OT, and ST. Patient will need rehab. Plan/VTE VTE Prophylaxis Ordered?: Yes Plan 1. Right femur fracture secondary to mechanical fall Orthopedic surgery consulted, recommendations appreciated Patient went to the OR for right cephalomedullary nail on 11/27/2020 2. Right distal radius fracture Orthopedic surgery consulted, recommendations appreciated Patient went to the OR for right closed reduction under fluoroscopy with short arm cast on 11/27/2020 3. Pansensitive E. coli UTI Due to patient's allergies, will start patient on ceftriaxone Ceftriaxone day 3 4. Hypothyroidism Continue levothyroxine 5.. Glaucoma Continue bimatoprost 6. Covid exposure Patient exposed to healthcare worker positive for Covid Patient placed on quarantine until 12/10/2020 7. DVT prophylaxis Heparin subcu Disposition: Patient is medically stable for rehab. When time approaches, will switch from IV to oral antibiotics for UTI. [facility]O Vital Signs Date Time Temp Pulse Resp B/P (MAP) Pulse Ox O2 Delivery O2 Flow Rate FiO2 12/01/20 14:00 98.5 73 18 127/54 (78) 98 Room Air 11/27/20 17:32 10.0 I&O- Last 24 Hours up to 6 AM 12/01/20 06:00 Intake Total 630 ml Output Total 1200 ml Balance -570 ml Laboratory Data 24H LABS Laboratory Tests 2 12/01/20 07:38: Immature Granulocyte % (Auto) 0.6, Neutrophils (%) (Auto) 67.5H, Lymphocytes (%) (Auto) 19.2L, Monocytes (%) (Auto) 10.4H, Eosinophils (%) (Auto) 2.1, Basophils (%) (Auto) 0.2, Neutrophils # (Auto) 4.4, Lymphocytes # (Auto) 1.3L, Monocytes # (Auto) 0.7, Eosinophils # (Auto) 0.1, Basophils # (Auto) 0.0, Nucleated Red Blood Cells % (auto) 0.0, Anion Gap 2L, Glomerular Filtration Rate > 60.0, Calcium Level 7.8L CBC/BMP Laboratory Tests 12/01/20 07:38 Microbiology Microbiology 11/27/20 Urine Culture - Final, Complete Escherichia Coli LON FU DO Dec 01, 2020 16:56
[2020-12-01 20:00] VITALS: BP 132/58
[2020-12-01] MEDS: DOCUSATE SODIUM 100MG CAPSULE PO SCH (21:00)
[2020-12-02] MEDS: ONDANSETRON 4MG/2ML VIAL IV PRN (03:06)
[2020-12-02] MEDS: MORPHINE 2 MG/ML 1ML VIAL (J2270) IV PRN ×2 (03:07→05:07)
[2020-12-02] MEDS ORDERED: ONDANSETRON 4 MG ORAL DISINTEGRATING TAB PO ONE (04:05)
[2020-12-02] MEDS: HEPARIN SOD (PORCINE) 5000UNITS/ML 1ML VIAL/SYRINGE SC SCH ×3 (05:54→21:09)
[2020-12-02] MEDS: LEVOTHYROXINE 88MCG TABLET (0.088 MG) PO SCH (05:55)
[2020-12-02 06:00] VITALS: BP 114/76
[2020-12-02] MEDS: cefTRIAXone SOD 1 GM in D5W MINI-BAG PLUS 50 ML IV SCH (09:42)
[2020-12-02] MEDS: OMEGA-3 1000MG CAPSULE PO SCH (09:43)
[2020-12-02] MEDS: DICLOFENAC EPOLAMINE 1.3 % PATCH TOP SCH ×2 (09:43→21:09)
[2020-12-02] MEDS: ASPIRIN 81MG ENTERIC TABLET PO SCH (09:43)
[2020-12-02] MEDS: MULTIVITAMINS/MINERALS THERAP 1 TAB PO SCH (09:43)
[2020-12-02] MEDS: FEXOFENADINE 60 MG TAB PO SCH (09:43)
[2020-12-02] MEDS: CALCIUM/VITAMIN D 500 MG TAB PO SCH ×2 (09:43→21:08)
[2020-12-02] MEDS: PERCOCET 5MG/325MG TAB PO PRN (15:46)
[2020-12-02] MEDS: CALCIUM CARBONATE 500 MG CHEW U/D PO PRN (15:46)
--- NOTE | 2020-12-02 17:41 | REP ---
INDICATION: Distal radius fracture right COMPARISON: None. TECHNIQUE: AP, lateral, bilateral oblique views right wrist. FINDINGS: Patient is status post casting for radial metaphyseal fracture. Evaluation is limited due to overlying cast material IMPRESSION: Status post casting for distal radial metaphyseal fracture. <Electronically signed by Aurelio Ruiz > 12/02/20 [id number]
--- NOTE | 2020-12-02 17:43 | REP ---
INDICATION: hip fracture right COMPARISON: None. TECHNIQUE: AP and frog-lateral views of the right femur. FINDINGS: Patient is status post satisfactory open reduction and fixation for intertrochanteric fracture. Intramedullary angel and retaining screws are in satisfactory position. Displaced lesser trochanter fracture fragment noted. IMPRESSION: Status post satisfactory open reduction and fixation for intertrochanteric fracture. <Electronically signed by Aurelio Ruiz > 12/02/20 [id number]
--- NOTE | 2020-12-02 18:47 | IPNPDOC ---
Subjective Date Seen The patient was seen on 12/02/20. Subjective Chief Complaint/HPI Mrs. Edward is an 85-year-old female with history of breast cancer status post chemo and radiation and hypothyroidism who presents with a mechanical fall resulting in a right femur fracture and right distal radius fracture. Patient went to the OR on 11/27/2020 for repairs of the right femur and right radius. Patient was exposed to healthcare worker positive for Covid on 11/29/2020. She will be in quarantine until 12/10/2020. Patient was seen this morning. Denies chest pain or dyspnea. She is disheartened about her situation. She was hoping the orthopedic surgery with see her. Also she was unhappy about how long she had to wait for nurses response as sometimes she did have the sit on the toilet for a long time or wait to have help for her meals. I explained that we are short staffed and being on Covid precautions slows down response time. PFS did speak with orthopedic surgery who saw her later in the day. Otherwise, last night IV access was lost and they had to find a new site. It is very painful to her and she declined morning labs. All of her labs have been fairly stable. We will discontinue routine labs. I will switch her IV antibiotics to oral antibiotics. Patient will be made ALC. Objective Physical Examination General Exam: Positive: Alert, Cooperative Eye Exam: Negative: Sclera icteric Chest Exam: Positive: Clear to auscultation Heart Exam: Positive: Rate Normal, Regular Rhythm Abdomen Exam: Positive: Normal bowel sounds, Soft; Negative: Tenderness Extremity Exam: Negative: Edema Neuro Exam: Positive: Normal Speech, Other (Good cutch cleaner strength in the left hand. Able to wiggle right fingers and bilateral toes) Psych Exam: Positive: Mental status NL, Mood NL Assessment /Plan Assessment Mrs. Edward is an 85-year-old female with history of breast cancer status post chemo and radiation and hypothyroidism who presents with a mechanical fall resulting in a right femur fracture and right distal radius fracture. Orthopedic surgery was consulted. Dr. Tidwell took patient to the OR on 11/27/2020 for right cephalomedullary nail for right femur fracture and closed reduction under fluoroscopy for right distal radius fracture. Patient will need PT, OT, and ST. Patient will need rehab. Plan/VTE VTE Prophylaxis Ordered?: Yes Plan 1. Right femur fracture secondary to mechanical fall Orthopedic surgery consulted, recommendations appreciated Patient went to the OR for right cephalomedullary nail on 11/27/2020 2. Right distal radius fracture Orthopedic surgery consulted, recommendations appreciated Patient went to the OR for right closed reduction under fluoroscopy with short arm cast on 11/27/2020 3. Pansensitive E. coli UTI Due to patient's allergies, will start patient on ceftriaxone Ceftriaxone was switched to cefdinir. Antibiotic course day 4. Can discontinue antibiotics after day 5. 4. Hypothyroidism Continue levothyroxine 5.. Glaucoma Continue bimatoprost 6. Covid exposure Patient exposed to healthcare worker positive for Covid Patient placed on quarantine until 12/10/2020 7. DVT prophylaxis Heparin subcu Disposition: Patient is medically stable for rehab. Currently pending quarantine duration. Patient will be made ALC VS, I&O, 24H, Fishbone Vital Signs/I&O Vital Signs Date Time Temp Pulse Resp B/P (MAP) Pulse Ox O2 Delivery O2 Flow Rate FiO2 12/02/20 16:51 18 12/02/20 06:00 97.8 77 114/76 (89) 95 12/01/20 20:00 Room Air 11/27/20 17:32 10.0 I&O- Last 24 Hours up to 6 AM 12/02/20 06:00 Intake Total 900 ml Output Total 775 ml Balance 125 ml Laboratory Data Microbiology Microbiology 11/27/20 Urine Culture - Final, Complete Escherichia Coli LON FU DO Dec 02, 2020 18:47
--- NOTE | 2020-12-02 19:29 | ECGEPIP ---
[facility] Test Date: 2020-12-02 Pat Name: SHWETA OSCAR Department: Room: [place] [address] Gender: Female Cage Manager: BRENNEN : 1935 Requested By: LG LARSON Order Number: [id number] Reading MD: Price Rojo Measurements Intervals [place] Rate: 67 P: HI: 96 QRS: 54 QRSD: 134 T: 44 QT: 414 QTc: 437 Interpretive Statements Sinus rhythm with short HI Right bundle branch block Normalized QTc intervalk when compared to tracing done 11-26-20 Electronically Signed on 12-02-2020 19:29:05 EDT by Price Rojo
[2020-12-02] MEDS: DICYCLOMINE 10 MG CAP PO PRN (21:08)
[2020-12-02] MEDS: DOCUSATE SODIUM 100MG CAPSULE PO SCH (21:08)
[2020-12-03] MEDS: PERCOCET 5MG/325MG TAB PO PRN (01:00)
[2020-12-03 06:00] VITALS: BP 128/58
[2020-12-03] MEDS: LEVOTHYROXINE 88MCG TABLET (0.088 MG) PO SCH (06:27)
[2020-12-03] MEDS: HEPARIN SOD (PORCINE) 5000UNITS/ML 1ML VIAL/SYRINGE SC SCH ×3 (06:27→23:25)
[2020-12-03] MEDS: MULTIVITAMINS/MINERALS THERAP 1 TAB PO SCH ×2 (09:00→09:25)
[2020-12-03] MEDS: OMEGA-3 1000MG CAPSULE PO SCH ×2 (09:00→09:25)
[2020-12-03] MEDS: ASPIRIN 81MG ENTERIC TABLET PO SCH ×2 (09:00→09:25)
[2020-12-03] MEDS: CALCIUM/VITAMIN D 500 MG TAB PO SCH ×3 (09:00→23:25)
[2020-12-03] MEDS: CEFDINIR 300 MG CAP (OMNICEF) PO SCH ×3 (09:00→23:25)
[2020-12-03] MEDS: FEXOFENADINE 60 MG TAB PO SCH ×2 (09:00→09:25)
[2020-12-03] MEDS: CALCIUM CARBONATE 500 MG CHEW U/D PO PRN (09:25)
[2020-12-03] MEDS: DICLOFENAC EPOLAMINE 1.3 % PATCH TOP SCH ×2 (09:25→21:00)
[2020-12-03] MEDS: SENOKOT S TAB PO SCH ×2 (09:30→23:24)
[2020-12-03] MEDS: MIRALAX *UNIT DOSE* 17GM PACKET PO SCH ×2 (09:45→23:26)
[2020-12-03] MEDS ORDERED: PROMETHAZINE INJ 25 MG/ML VIAL (J2550) IV ONE (10:05)
[2020-12-03] MEDS ORDERED: ONDANSETRON 4 MG ORAL DISINTEGRATING TAB PO ONE (10:30)
[2020-12-03] MEDS ORDERED: METOCLOPRAMIDE INJ 10MG/2ML VIAL (J2765 PER 1) IV ONE (10:35)
--- NOTE | 2020-12-03 10:58 | REP ---
INDICATION: vomiting. r/o aspiration COMPARISON: None. TECHNIQUE: Frontal views of the chest and abdomen/pelvis along with cross-table view of the abdomen. FINDINGS: Frontal view of the chest demonstrates chronic changes without obvious acute consolidation, effusion, or pneumothorax. Supine and cross-table lateral views of the abdomen and pelvis demonstrate relatively nonspecific bowel gas pattern. Moderate fecal stasis and mild ileus cannot be excluded. No definite evidence for bowel obstruction or perforation noted. Skeletal structures demonstrate osteopenia and degenerative changes. Chronic compression deformity at L1 and L3 cannot be excluded. IMPRESSION: Fecal stasis and ileus cannot be excluded. No evidence for bowel obstruction or perforation. Frontal view of the chest demonstrates no acute consolidation or effusion. <Electronically signed by Aurelio Ruiz > 12/03/20 [id number]
[2020-12-03] MEDS: ONDANSETRON 4MG/2ML VIAL IV PRN (22:21)
[2020-12-03] MEDS: MORPHINE 2 MG/ML 1ML VIAL (J2270) IV PRN (22:21)
[2020-12-04] MEDS: ONDANSETRON 4MG/2ML VIAL IV PRN (03:08)
[2020-12-04] MEDS: MOM 30ML SUSPENSION UDC PO PRN (03:09)
[2020-12-04] MEDS: CALCIUM CARBONATE 500 MG CHEW U/D PO PRN (03:09)
[2020-12-04] MEDS: LEVOTHYROXINE 88MCG TABLET (0.088 MG) PO SCH (05:25)
[2020-12-04] MEDS: HEPARIN SOD (PORCINE) 5000UNITS/ML 1ML VIAL/SYRINGE SC SCH ×2 (05:25→12:58)
[2020-12-04 06:00] VITALS: BP 131/60
[2020-12-04] MEDS: ASPIRIN 81MG ENTERIC TABLET PO SCH (08:50)
[2020-12-04] MEDS: CALCIUM/VITAMIN D 500 MG TAB PO SCH ×2 (08:50→21:00)
[2020-12-04] MEDS: FEXOFENADINE 60 MG TAB PO SCH (08:50)
[2020-12-04] MEDS: CEFDINIR 300 MG CAP (OMNICEF) PO SCH ×2 (08:50→21:00)
[2020-12-04] MEDS: SENOKOT S TAB PO SCH ×2 (08:50→21:00)
[2020-12-04] MEDS: OMEGA-3 1000MG CAPSULE PO SCH (08:50)
[2020-12-04] MEDS: MULTIVITAMINS/MINERALS THERAP 1 TAB PO SCH (08:50)
[2020-12-04] MEDS: DICLOFENAC EPOLAMINE 1.3 % PATCH TOP SCH ×2 (09:06→21:00)
[2020-12-04] MEDS: MIRALAX *UNIT DOSE* 17GM PACKET PO SCH ×2 (09:06→21:00)
--- NOTE | 2020-12-04 11:56 | IPNPDOC ---
Text Note Date of Service The patient was seen on 12/04/20. NOTE posts op cephalomedullary nail right hip 11/27/2020 post op right closed reduction and casting right wrist 11/27/2020 UTI on ceftriaxone O/E pt resting comfortable sitting in bed UE Cast in situ right wrist no pain shoulder and elbow Movers finger well good cap refil LE incision dressing clean and dry Tolerate gentle ROM HIP and knee SILT grossly neuro intact Nurse state limited mobility Imaging : reviewed A&P: right hip WBAT D/C lala 14 days post op Dressing Q two days clean with chlorhexidine DVT prophylaxis 30 days or until mobilized Right wrist NWB, Cast Six weeks Awaiting Rehab Followup 2 weeks post op as out-patient at [facility] [place] VS,Anupama, I+O VS, Anupama, I+O Vital Signs Date Time Temp Pulse Resp B/P (MAP) Pulse Ox O2 Delivery O2 Flow Rate FiO2 12/04/20 06:00 98.3 76 18 131/60 (83) 96 12/03/20 22:31 Room Air I&O- Last 24 Hours up to 6 AM 12/04/20 06:00 Intake Total 50 ml Output Total 800 ml Balance -750 ml NISSA COLVIN MD Dec 04, 2020 11:56
[2020-12-04] MEDS: BISACODYL 10 MG SUPP PR SCH ×2 (12:58→17:19)
[2020-12-04] MEDS: METOCLOPRAMIDE INJ 10MG/2ML VIAL (J2765 PER 1) IV SCH (17:26)
[2020-12-04] MEDS: GASTROGRAFIN SOLUTION 30ML PO SCH ×2 (18:15→18:47)
[2020-12-04 18:22] LABS: ALBUMIN 2.4 GM/DL (3.2-5.2); ALT/SGPT 48 U/L (12-78); BILIRUBIN,TOTAL 0.8 MG/DL (0.2-1.0); BLOOD UREA NITROGEN 39 MG/DL (7-18); CALCIUM LEVEL 8.4 MG/DL (8.8-10.2); CARBON DIOXIDE LEVEL 37 MEQ/L (21-32); CHLORIDE LEVEL 99 MEQ/L (98-107); CREATININE FOR GFR 0.85 MG/DL (0.55-1.30); GLOMERULAR FILTRATION RATE > 60.0 (>32); GLUCOSE, FASTING 121 MG/DL (70-100); MAGNESIUM LEVEL 2.3 MG/DL (1.8-2.4); POTASSIUM SERUM 3.8 MEQ/L (3.5-5.1); SODIUM LEVEL 141 MEQ/L (136-145)
[2020-12-04] MEDS ORDERED: traMADol 50 MG TAB PO PRN (19:30)
--- NOTE | 2020-12-04 20:23 | IPN ---
PROGRESS NOTE DATE: 12/04/2020 SUBJECTIVE: The patient complains of vomiting x2 days with fecal stasis and constipation. She had one small bowel movement which was solid today. She has no abdominal pain, no fever or chills, no dysuria, urgency or frequency. The pain is controlled. She is currently on Miralax, Senokot, Milk of Magnesia and Dulcolax suppositories and takes Percocet as needed for pain and Morphine IV for breakthrough. OBJECTIVE: PHYSICAL EXAMINATION: VITAL SIGNS: tempo 98.3, pulse 76, respiratory rate 18, blood pressure 131/60, oxygen saturation 96% on room air. GENERAL APPEARANCE: The patient is frail appearing, in no distress. She is able to speak comfortably, no cyanosis. LUNGS: Clear to auscultation. No rales, rhonchi or wheezes. HEART: S1, S2, sinus rhythm. ABDOMEN: Soft, nontender, nondistended. Positive bowel sounds. No rebound or guarding. No hepatosplenomegaly. EXTREMITIES: Right upper extremity is in a cast. The skin on her fingers on the right hand is pink, warm, dry, well perfused. No pitting edema. Right hip postop changes. LABORATORY DATA: Reviewed. IMAGING STUDIES: Reviewed. MICROBIOLOGY: Reviewed. ASSESSMENT AND PLAN: This is an 85-year-old female status post mechanical fall, sustaining a right hip fracture and right femoral fracture, status post repair of the right femur and right radius on 11/27. The patient had been exposed to a healthcare worker positive for coronavirus on 11/29 and needs to be in quarantine until 12/10/2020. The patient has had two episodes of emesis. Abdominal film shows fecal stasis. IMPRESSION: 1. Fecal stasis/constipation with vomiting no signs of bowel obstruction. The patient has been given a bowel regimen, suppositories, Milk of Magnesia, Miralax, as-needed anti-emetics. The patient has refused blood work for liver function tests, magnesium, potassium and calcium and basic metabolic panel to rule out dehydration and electrolyte abnormalities in light of recent episodes of emesis. 2. Right femoral fracture and right distal radial fracture secondary to mechanical fall - status post right cephalomedullary nail on 11/27/2020 and short arm cast with right closed reduction of the right distal radial fracture on 11/27. Postop management per Orthopedic Surgery. 3. Pansensitive E-coli urinary tract infection completed Ceftriaxone. Currently on Cefdinir. 4. Hypothyroidism on chronic Levothyroxine. 5. Glaucoma on eye drops. 6. Coronavirus exposure on 11/29 - The patient is to be quarantined until 12/10. DISPOSITION: The patient will need to have bowel movements and allow me to obtain a comprehensive panel for electrolytes and dehydration check. She is not cleared for discharge until she has a bowel movement and nausea resolves. MTDD
[2020-12-04] MEDS: MORPHINE 2 MG/ML 1ML VIAL (J2270) IV PRN (20:46)
[2020-12-04] MEDS: NS 1,000 ML IV SCH (20:47)
[2020-12-04] MEDS: ACETAMINOPHEN 500 MG TAB PO SCH (21:00)
[2020-12-05] MEDS: BISACODYL 10 MG SUPP PR SCH
[2020-12-05] MEDS: HEPARIN SOD (PORCINE) 5000UNITS/ML 1ML VIAL/SYRINGE SC SCH ×4 (00:01→21:15)
[2020-12-05 06:00] VITALS: BP 131/60
[2020-12-05] MEDS ORDERED: FLEET ENEMA PR ONE ×2 (06:00→16:00)
[2020-12-05] MEDS: LEVOTHYROXINE 88MCG TABLET (0.088 MG) PO SCH (06:18)
[2020-12-05] MEDS: METOCLOPRAMIDE INJ 10MG/2ML VIAL (J2765 PER 1) IV SCH ×5 (06:18→23:40)
[2020-12-05] MEDS: MORPHINE 2 MG/ML 1ML VIAL (J2270) IV PRN (06:34)
[2020-12-05] MEDS: ASPIRIN 81MG ENTERIC TABLET PO SCH (10:19)
[2020-12-05] MEDS: NS 1,000 ML IV SCH (10:20)
[2020-12-05] MEDS: MIRALAX *UNIT DOSE* 17GM PACKET PO SCH ×3 (10:20→21:00)
[2020-12-05] MEDS: FEXOFENADINE 60 MG TAB PO SCH ×2 (10:22→10:38)
[2020-12-05] MEDS: SENOKOT S TAB PO SCH ×2 (10:22→21:14)
[2020-12-05] MEDS: ACETAMINOPHEN 500 MG TAB PO SCH ×4 (10:23→21:00)
[2020-12-05] MEDS: CALCIUM/VITAMIN D 500 MG TAB PO SCH ×3 (10:23→21:00)
[2020-12-05] MEDS: DICLOFENAC EPOLAMINE 1.3 % PATCH TOP SCH ×2 (10:24→21:16)
[2020-12-05] MEDS ORDERED: MORPHINE 30 MG TAB **MSIR PO PRN (15:50)
[2020-12-05] MEDS ORDERED: MAGNESIUM CITRATE 300 ML BTL PO ONE (16:00)
--- NOTE | 2020-12-05 16:41 | IPN ---
PROGRESS NOTE DATE: 12/05/2020 Patient has had significant fecal stasis and constipation as well as vomiting for the past 3 days with no signs of dehydration, electrolyte abnormalities, or significant alkalosis on her recent labs. This morning, patient says that she feels very weak and tired. She has no vomiting yet but felt nauseous. She had a very small bowel movement. Will try enemas today. No fever, chills, or shortness of breath overnight. Pain is controlled. Percocet has been discontinued as this could have been causing her nausea. She is currently on tramadol and acetaminophen as needed for pain. Vital signs: Temperature 98.3, pulse 72, respiratory rate 16, blood pressure 131/60, 94% on room air. Generally: Patient is awake, alert, oriented to person, place, and time. Right upper extremity is in a cast. Patient is postoperative right hip. She is in no distress, able to speak in full sentences. Moist mucous membranes. Lungs: Clear to auscultation. No wheezing or rales. Heart: S1, S2, sinus. Abdomen: Soft, nontender, nondistended. Positive bowel sounds. No rebound or guarding. Extremities: No pitting edema. Right upper extremity cast and postoperative right hip. Laboratory data, imaging studies, microbiology have been reviewed. ASSESSMENT AND PLAN: This is an 85-year-old female status post mechanical fall sustaining a right femoral fracture and right radial fracture status post repair of the right femoral fracture and casting of the right radial fracture. Patient was treated for urinary tract infection and was changed to alternate level of care (ALC) status awaiting placement but developed severe constipation, fecal stasis, and vomiting. Current Issues: 1. Constipation, fecal stasis. 2. Vomiting secondary to constipation. 3. Right femoral fracture and right distal radial fracture secondary to mechanical fall status post right cephalomedullary nail on 11/27/2020 and short arm cast with right closed reduction of the right distal radial fracture on 11/27/2020. 4. Ocampo sensitive Escherichia (E) coli urinary tract infection (UTI). Completing cefdinir status post ceftriaxone. 5. Hypothyroidism. 6. Glaucoma. 7. Coronavirus exposure on 11/29/2020, quarantine until 12/10/2020. PLAN: Obtain CT abdomen and pelvis today. Patient has no abdominal pain. Liver function tests are within normal limits. Once patient's constipation has resolved she may be discharged to rehabilitation. Try enemas today, obtain CT abdomen and pelvis, and continue with antiemetics as needed. Patient's pain medications have been changed to tramadol. Percocet has been discontinued.
[2020-12-06 05:46] VITALS: BP 153/68
[2020-12-06] MEDS: HEPARIN SOD (PORCINE) 5000UNITS/ML 1ML VIAL/SYRINGE SC SCH ×3 (06:56→21:33)
[2020-12-06] MEDS: METOCLOPRAMIDE INJ 10MG/2ML VIAL (J2765 PER 1) IV SCH (06:56)
[2020-12-06] MEDS: LEVOTHYROXINE 88MCG TABLET (0.088 MG) PO SCH (06:56)
[2020-12-06] MEDS ORDERED: E-Z-GAS II EFFERVESCENT PACKET (SODIUM BICARB./CITRIC ACID/SIMETHICONE) As Ordered ONE (08:06)
[2020-12-06] MEDS ORDERED: E-Z-HD 98% w/w 340GM SUSP BTL As Ordered ONE (08:06)
[2020-12-06] MEDS ORDERED: E-Z-PAQUE 96% w/w SUSP 176GM BTL As Ordered ONE ×2 (08:06→08:30)
[2020-12-06] MEDS: FEXOFENADINE 60 MG TAB PO SCH (08:46)
[2020-12-06] MEDS: CALCIUM/VITAMIN D 500 MG TAB PO SCH ×2 (08:46→21:33)
[2020-12-06] MEDS: ACETAMINOPHEN 500 MG TAB PO SCH ×3 (08:46→21:32)
[2020-12-06] MEDS: SENOKOT S TAB PO SCH ×2 (08:46→21:32)
[2020-12-06] MEDS: ASPIRIN 81MG ENTERIC TABLET PO SCH (08:46)
[2020-12-06] MEDS: DICLOFENAC EPOLAMINE 1.3 % PATCH TOP SCH ×2 (09:53→21:33)
[2020-12-06] MEDS: MIRALAX *UNIT DOSE* 17GM PACKET PO SCH ×2 (09:53→21:33)
[2020-12-06] MEDS: PANTOPRAZOLE 40MG VIAL (C9113 PER 1) IV SCH (10:16)
[2020-12-06] MEDS ORDERED: ACET-683 PO (14:05)
[2020-12-06] MEDS ORDERED: MSIR30TA PO (14:05)
[2020-12-06] MEDS: MOM 30ML SUSPENSION UDC PO PRN (14:51)
--- NOTE | 2020-12-06 15:01 | IPNPDOC ---
Date Seen The patient was seen on 12/06/20. Progress Note Pt refuses further workup for her intractable n/v. plan: transfer to [facility]sn[facility] status. dc wed[facility]. VS, I&O, 24H, Fishbone Vital Signs/I&O Vital Signs Date Time Temp Pulse Resp B/P (MAP) Pulse Ox O2 Delivery O2 Flow Rate FiO2 12/06/20 05:46 97.6 83 16 153/68 (96) 95 Room Air I&O- Last 24 Hours up to 6 AM 12/06/20 05:59 Intake Total 1195 ml Output Total 1400 ml Balance -205 ml Laboratory Data Microbiology Microbiology 11/27/20 Urine Culture - Final, Complete Escherichia Coli CHRISTIAN MILAN MD Dec 06, 2020 15:01
--- NOTE | 2020-12-06 15:15 | IPNPDOC ---
Date Seen The patient was seen on 12/06/20. Progress Note SUBJECTIVE: had 2 more episodes of emesis overnight. no abd pain/f/c/sob. pt says she's been having "stomach problems " for years. small solid bowel movts. pain in right arm and hip 05/01. OBJECTIVE: PE: Vital signs: SEE BELOW Generally: sitting on bedside commode. no distress. right arm in cast. HEENT: Moist mucous membranes.no jvd Lungs: Clear to auscultation. No wheezing or rales. Heart: S1, S2, sinus. Abdomen: Soft, nontender, nondistended. Positive bowel sounds. No rebound or guarding. Extremities: No pitting edema. Right upper extremity cast and postoperative right hip. Laboratory data, imaging studies, microbiology have been reviewed. ASSESSMENT AND PLAN: This is an 85-year-old female status post mechanical fall sustaining a right femoral fracture and right radial fracture status post repair of the right femoral fracture and casting of the right radial fracture. Patient was treated for urinary tract infection and was changed to alternate level of care (ALC) status awaiting placement but developed severe constipation, fecal stasis, and vomiting. Current Issues: 1. Constipation, fecal stasis. 2. Vomiting secondary to constipation. 3. Right femoral fracture and right distal radial fracture secondary to mechanical fall status post right cephalomedullary nail on 11/27/2020 and short arm cast with right closed reduction of the right distal radial fracture on 11/27/2020. 4. Ocampo sensitive Escherichia (E) coli urinary tract infection (UTI). Completing cefdinir status post ceftriaxone. 5. Hypothyroidism. 6. Glaucoma. 7. Coronavirus exposure on 11/29/2020, quarantine until 12/10/2020. PLAN: gastric emptying scan and ugi series ordered, but pt refused the tests. continue w bowel regimen and antiemetics. labs negative. no abd pain. prn pain meds. stable for dc to rehab. -wednesday to [facility]. change to alc status. VS, I&O, 24H, Fishbone Vital Signs/I&O Vital Signs Date Time Temp Pulse Resp B/P (MAP) Pulse Ox O2 Delivery O2 Flow Rate FiO2 12/06/20 05:46 97.6 83 16 153/68 (96) 95 Room Air I&O- Last 24 Hours up to 6 AM 12/06/20 06:00 Intake Total 745 ml Output Total 1100 ml Balance -355 ml Laboratory Data Microbiology Microbiology 11/27/20 Urine Culture - Final, Complete Escherichia Coli CHRISTIAN MILAN MD Dec 06, 2020 15:15
--- NOTE | 2020-12-06 17:05 | REP ---
INDICATION: intractable n/v. COMPARISON: None TECHNIQUE: This procedure was performed by CRISTIANA Hardy, under the direct supervision of Dr. Branch. Images were reviewed with Dr. Branch prior to dictation. Liquid barium and gas producing crystals were given in the erect position, as well as liquid barium in the prone oblique position in order to perform a double contrast upper GI examination. Additional liquid barium was given at the end of the examination in order to perform a small-bowel follow-through. FINDINGS: The senior ui ux designer film shows no organomegaly or pathological masses. The there is moderate dilatation of the proximal small bowel.. The oral and pharyngeal stages of deglutition were unremarkable. Esophageal transport is prompt and efficient and there is no evidence of esophagitis, stricture, or mucosal ring. There is no evidence of a hiatal hernia. Gastroesophageal reflux was observed below the level of roula.. This was a technically limited exam due to the barium material staying in the fundus and body of the stomach. The barium material remained within the fundus and body of the stomach for approximately 30 minutes while the patient was downstairs. There was moderate dilatation of the stomach and duodenal bulb. There was also moderate dilatation of the proximal small bowel. Findings may represent a bowel obstruction. Due to patient discomfort the patient was sent back to the floor to await further imaging for the small-bowel follow-through. During that time the patient decided that she no longer wish to continue with the examination. No further imaging was acquired IMPRESSION: Gastroesophageal reflux was observed to below the level of roula. This was a technically limited exam due to barium material staying in the body and fundus of the stomach. There is moderate dilatation of the stomach and duodenal bulb. There is also moderate dilatation of the proximal small bowel. These findings may be consistent with a bowel obstruction. No small-bowel follow-through was obtained due to patient discomfort and patient's decision to terminate the exam. 0.6 minutes of fluoroscopy time was utilized for this procedure. Some fluoroscopic images are performed with last image hold technology. These images require no additional radiation. <Electronically signed by My Mahoney > 12/06/20 [id number] <Electronically signed by Moris Branch > 12/06/20 [id number]
[2020-12-06] MEDS: BISACODYL 10 MG SUPP PR SCH (19:21)
[2020-12-07] MEDS: LEVOTHYROXINE 88MCG TABLET (0.088 MG) PO SCH (05:08)
[2020-12-07] MEDS: HEPARIN SOD (PORCINE) 5000UNITS/ML 1ML VIAL/SYRINGE SC SCH ×3 (05:08→22:07)
[2020-12-07 06:00] VITALS: BP 121/52
[2020-12-07] MEDS: MIRALAX *UNIT DOSE* 17GM PACKET PO SCH ×2 (09:00→22:08)
[2020-12-07] MEDS: ACETAMINOPHEN 500 MG TAB PO SCH ×3 (09:00→22:05)
[2020-12-07] MEDS: BISACODYL 10 MG SUPP PR SCH ×2 (09:00→21:00)
[2020-12-07] MEDS: PANTOPRAZOLE 40MG VIAL (C9113 PER 1) IV SCH (09:43)
[2020-12-07] MEDS: DICLOFENAC EPOLAMINE 1.3 % PATCH TOP SCH ×2 (09:43→22:07)
[2020-12-07] MEDS: SENOKOT S TAB PO SCH ×2 (09:44→22:04)
[2020-12-07] MEDS: ASPIRIN 81MG ENTERIC TABLET PO SCH (09:44)
[2020-12-07] MEDS: FEXOFENADINE 60 MG TAB PO SCH (09:44)
[2020-12-07] MEDS: CALCIUM/VITAMIN D 500 MG TAB PO SCH ×2 (09:44→22:04)
[2020-12-08] MEDS: LEVOTHYROXINE 88MCG TABLET (0.088 MG) PO SCH (05:40)
[2020-12-08] MEDS: HEPARIN SOD (PORCINE) 5000UNITS/ML 1ML VIAL/SYRINGE SC SCH ×3 (05:40→21:11)
[2020-12-08 06:00] VITALS: BP 136/62
[2020-12-08] MEDS: BISACODYL 10 MG SUPP PR SCH ×2 (09:00→21:00)
[2020-12-08] MEDS: SENOKOT S TAB PO SCH ×2 (09:00→21:10)
[2020-12-08] MEDS: MIRALAX *UNIT DOSE* 17GM PACKET PO SCH ×2 (09:00→21:00)
[2020-12-08] MEDS: PANTOPRAZOLE 40MG VIAL (C9113 PER 1) IV SCH (09:40)
[2020-12-08] MEDS: FEXOFENADINE 60 MG TAB PO SCH (09:40)
[2020-12-08] MEDS: CALCIUM/VITAMIN D 500 MG TAB PO SCH ×2 (09:40→21:00)
[2020-12-08] MEDS: DICLOFENAC EPOLAMINE 1.3 % PATCH TOP SCH ×2 (09:40→21:11)
[2020-12-08] MEDS: ACETAMINOPHEN 500 MG TAB PO SCH ×3 (09:40→21:10)
[2020-12-08] MEDS: ASPIRIN 81MG ENTERIC TABLET PO SCH (09:40)
[2020-12-09] MEDS: LEVOTHYROXINE 88MCG TABLET (0.088 MG) PO SCH (05:32)
[2020-12-09] MEDS: HEPARIN SOD (PORCINE) 5000UNITS/ML 1ML VIAL/SYRINGE SC SCH (05:32)
[2020-12-09 06:00] VITALS: BP 141/63
[2020-12-09] MEDS: ASPIRIN 81MG ENTERIC TABLET PO SCH (08:37)
[2020-12-09] MEDS: FEXOFENADINE 60 MG TAB PO SCH (08:37)
[2020-12-09] MEDS: DICLOFENAC EPOLAMINE 1.3 % PATCH TOP SCH (08:37)
[2020-12-09] MEDS: SENOKOT S TAB PO SCH (08:37)
[2020-12-09] MEDS: MIRALAX *UNIT DOSE* 17GM PACKET PO SCH (08:38)
[2020-12-09] MEDS: ACETAMINOPHEN 500 MG TAB PO SCH (08:38)
[2020-12-09] MEDS: CALCIUM/VITAMIN D 500 MG TAB PO SCH (08:38)
[2020-12-09] MEDS: BISACODYL 10 MG SUPP PR SCH (08:38)
[2020-12-09] MEDS ORDERED: PANTOPRAZOLE 40MG TAB (PROTONIX) PO SCH (09:00)
[2020-12-09] MEDS ORDERED: PANTOPRAZOLE 20 MG TAB PO SCH (09:00)
--- NOTE | 2020-12-09 11:16 | DSES ---
DISCHARGE SUMMARY DATE OF ADMISSION: 11/26/2020 DATE OF DISCHARGE: 12/09/2020 Patient was changed to ALC status on 12/06/2020. CONSULTANTS DURING ADMISSION: 1. Orthopedic surgeon, Dr. Menard. PROCEDURES DURING THIS ADMISSION: 1. Closed reduction of right distal radius with internal fixation, right hip gamma nail placement. PRIMARY DISCHARGE DIAGNOSIS: 1. Mechanical fall. 2. Right femoral fracture. 3. Right distal radial fracture. 4. E. coli urinary tract infection, ortega sensitive. 5. Constipation, fecal stasis with vomiting. 6. Hypothyroidism. 7. Glaucoma. 8. Coronavirus exposure on 11/29/2020, quarantined until 12/10/2020. DISCHARGE INSTRUCTIONS: Postop instructions per Dr. Menard of Orthopedic Surgery including activity, DVT prophylaxis and postop surgical wound care. Patient is to have a primary care physician appointment within five days of hospital discharge and do to exposure to Coronavirus on 11/29 should be quarantined until 12/10/2020. HOSPITAL COURSE: This is an 85-year-old female who had a mechanical fall at home, found to have a right femoral fracture and right radial fracture, underwent medical optimization by Hospitalist, treated for a urinary tract infection with urine culture showing E. coli, medically optimized and underwent right cephalomedullary nail for the right femoral fracture on 11/27/2020 and right closed reduction of the right distal radial fracture with arm cast. Postop, the patient fecal stasis and constipation which was treated with bowel regimen. She had episodes of vomiting but refused further study with gastric emptying or upper GI Series. She was placed on Morphine and Tylenol t.i.d. for pain control. She is discharged in stable condition. PHYSICAL EXAMINATION: VITAL SIGNS: Temperature is 98.3, pulse is 76, respiratory is 16, blood pressure is 141/63, 97% on room air. GENERAL: Awake, alert and oriented x3, right arm is in a cast. LUNGS: Clear to auscultation. No wheezing. No rales. HEART: S1 and S2, sinus. ABDOMEN: Soft, nontender and nondistended. Positive bowel sounds. EXTREMITIES: No cyanosis or clubbing. Patient has postop right hip. The incision site is clean. No erythema, purulence or drainage. LABORATORY DATA/IMAGING STUDIES/MICROBIOLOGY: Please see the chart. TIME SPENT ON DISCHARGE: 30 minutes MTDD
== END 2020-12-09 10:43 | DRG 481 ==
LOC: M ED 15:31 → M ED INP 18:40 → ENRESERV 20:08 → M MSPAV 22:23
PROVIDERS: ADMIT Internal Medicine; ATTEND General Practice
PROC: 0QS636Z Reposition Right Upper Femur with Intramedullary Internal Fixation Device, Percutaneous Approach (ICD-10-PCS; principal; 2020-11-27 09:47)
PROC: 0PSHXZZ Reposition Right Radius, External Approach (ICD-10-PCS; 2020-11-27 09:47)
DX: S72.141A Displaced intertrochanteric fracture of right femur, initial encounter for closed fracture (principal); M62.82 Rhabdomyolysis; S52.531A Colles' fracture of right radius, initial encounter for closed fracture; N39.0 Urinary tract infection, site not specified; E03.9 Hypothyroidism, unspecified; H40.9 Unspecified glaucoma; W18.30XA Fall on same level, unspecified, initial encounter; Y92.013 Bedroom of single-family (private) house as the place of occurrence of the external cause; Y99.8 Other external cause status; Y93.E8 Activity, other personal hygiene; K59.00 Constipation, unspecified; B96.20 Unspecified Escherichia coli [E. coli] as the cause of diseases classified elsewhere; M54.9 Dorsalgia, unspecified; R11.10 Vomiting, unspecified; Z79.82 Long term (current) use of aspirin; Z79.899 Other long term (current) drug therapy; Z88.0 Allergy status to penicillin; Z88.1 Allergy status to other antibiotic agents; Z88.6 Allergy status to analgesic agent; Z88.8 Allergy status to other drugs, medicaments and biological substances; Z85.3 Personal history of malignant neoplasm of breast; Z92.21 Personal history of antineoplastic chemotherapy; Z92.3 Personal history of irradiation; Z90.49 Acquired absence of other specified parts of digestive tract; Z20.822 Contact with and (suspected) exposure to COVID-19

== ENCOUNTER → 2020-12-23 | Outpatient (CLI) | payer MEDICARE ==
[~2020-12-23] MED LIST: ACET-683 PO; ALEN35TA56 PO; ASPI-161 PO; BIMA01SOL OU; CALC20SPR NARES; CALCCAP4 PO; DICL1GEL3 TOP; FEXO60CA PO; FISH1000 PO; LEVO88TA3 PO; MM S100C PO; MSIR30TA PO; SENN-80 PO; VITMTA PO
--- NOTE | 2020-12-23 15:57 | REP ---
INDICATION: ORTHOPEDIC AFTERCARE. COMPARISON: 12/02/2020 TECHNIQUE: Three views with cast in place FINDINGS: Once again, the bony detail is obscured by casting material. The previously described distal radial fracture is essentially unchanged. No definite new fractures are identified on this limited exam. IMPRESSION: As above. <Electronically signed by Isidro Alvarado > 12/23/20 [id number]
--- NOTE | 2020-12-23 15:59 | REP ---
INDICATION: ORTHOPEDIC AFTERCARE. COMPARISON: 12/02/2020 TECHNIQUE: AP and lateral views FINDINGS: The previously described proximal femoral fracture is unchanged in alignment and position. There is no significant change in the intramedullary angel oral lag screw. The bones are demineralized. No additional fractures are identified. Degenerative changes are again seen at the hip and knee. IMPRESSION: No significant change compared to the prior exam. <Electronically signed by Isidro Alvarado > 12/23/20 [id number]
== END ==
LOC: M SOG 13:55
PROVIDERS: ATTEND Orthopaedic Surgery
DX: Z47.89 Encounter for other orthopedic aftercare (principal)

== ENCOUNTER 2021-01-06 08:54 | Inpatient (IN) | payer MEDICARE ==
[~2021-01-06] VITALS: Ht 154.9 cm; Wt 45.7 kg
[2021-01-06] MEDS: ACETAMINOPHEN TAB 650MG DOSE (2X325MG) PO SCH ×4 (09:00→21:57)
--- NOTE | 2021-01-06 09:39 | REP ---
INDICATION: fall COMPARISON: 11/26/2020 TECHNIQUE: Axial noncontrast images from the skull base to the thoracic inlet with coronal reformations. This CT examination was performed using the following dose reduction techniques: Automated exposure control, adjustment of mA and/or kv according to the patient's size, and use of iterative reconstruction technique. FINDINGS: Atrophy with periventricular leukomalacia and microvascular ischemic changes are appreciated. The ventricles and sulci are symmetric. Branch-white differentiation is maintained. There is no evidence for acute intracranial hemorrhage, mass/mass effect, pathology or infarction. No extra-axial fluid collection. Calvarium is intact. Paranasal sinuses and mastoid air cells are clear. IMPRESSION: Atrophy and microvascular ischemic changes. No acute intracranial hemorrhage, infarction, or mass/mass effect. <Electronically signed by Aurelio Ruiz > 01/06/21 0976
--- NOTE | 2021-01-06 09:42 | REP ---
INDICATION: fall COMPARISON: 11/26/2020 TECHNIQUE: Axial noncontrast images from the skull base to the thoracic inlet with coronal and sagittal re-formations This CT examination was performed using the following dose reduction techniques: Automated exposure control, adjustment of mA and/or kv according to the patient's size, and use of iterative reconstruction technique. FINDINGS: Age-related osteopenia and advanced multilevel degenerative spondylosis again noted and essentially stable. Findings again include endplate sclerosis/heterogeneity, osteophytosis, disc space narrowing, and posterior osteophytes primarily at C5-6 and C6-7 which cause mild chronic canal stenosis. There is no evidence for acute fracture/compression injury or subluxation. Spinal canal is unchanged. Paravertebral soft tissues are within normal limits. IMPRESSION: 1. Advanced multilevel degenerative spondylosis stable compared to prior examination. 2. No evidence for acute fracture/compression injury or subluxation. <Electronically signed by Aurelio uRiz > 01/06/21 0938
--- NOTE | 2021-01-06 09:59 | REP ---
INDICATION: EVALUATION FOR OR. COMPARISON: 12/03/2020 TECHNIQUE: AP supine FINDINGS: Compared to the prior exam today's examination is nondiagnostic. The lung ramirez are grossly over penetrated by the radiographic beam. A comparison to the prior exam cannot be made. The cardiomediastinal silhouette is unchanged. IMPRESSION: Nondiagnostic AP supine chest. Repeat examination is recommended. <Electronically signed by Isidro Alvarado > 01/06/21 0918
--- NOTE | 2021-01-06 10:02 | REP ---
INDICATION: fall. COMPARISON: 12/23/2020 TECHNIQUE: AP lateral FINDINGS: There is a new hairline lucency in the proximal femoral lateral diaphyseal cortex. The previously described proximal femoral fracture appears unchanged. The intramedullary angel and lag screw appear unchanged. IMPRESSION: There is evidence of a new hairline proximal femoral fracture as described above. This was imaged only in the AP view. <Electronically signed by Isidro Alvarado > 01/06/21 0940
--- NOTE | 2021-01-06 10:04 | REP ---
INDICATION: fall. COMPARISON: 12/23/2020 TECHNIQUE: AP pelvis two views right femur FINDINGS: The previously described proximal femoral fracture is unchanged. Lag screw and intramedullary angel are unchanged. Seen in the lateral cortex of the proximal femoral diaphysis there is a new lucency. This is hairline in appearance. This is seen only on the AP view. IMPRESSION: Evidence of a new hairline fracture proximal femur as described above. <Electronically signed by Isidro Alvarado > 01/06/21 100
--- NOTE | 2021-01-06 11:06 | REP ---
INDICATION: trauma COMPARISON: None. TECHNIQUE: AP, lateral, bilateral oblique views of the right knee. FINDINGS: Age-related osteopenia and degenerative changes along with evidence for prior intramedullary angel placement through the visualized femoral shaft noted. No acute fracture or dislocation. Lateral view without evidence for effusion. IMPRESSION: No acute fracture or dislocation. <Electronically signed by Aurelio Ruiz > 01/06/21 2925
[2021-01-06 11:19] LABS: HEMOGLOBIN 11.8 g/dl (12.0-15.5); MEAN CORPUSCULAR HEMOGLOBIN 32.4 pg (27.0-33.0); MEAN CORPUSCULAR HGB CONC 31.9 g/dl (32.0-36.5); MEAN CORPUSCULAR VOLUME 101.6 fl (80.0-96.0); PLATELET COUNT, AUTOMATED 268 10^3/uL (150-450); RED BLOOD COUNT 3.64 10^6/uL (4.00-5.40); WHITE BLOOD COUNT 4.2 10^3/uL (4.0-10.0)
[2021-01-06 11:48] LABS: BLOOD UREA NITROGEN 17 MG/DL (7-18); CALCIUM LEVEL 8.8 MG/DL (8.8-10.2); CARBON DIOXIDE LEVEL 27 MEQ/L (21-32); CHLORIDE LEVEL 111 MEQ/L (98-107); CREATININE FOR GFR 0.54 MG/DL (0.55-1.30); GLOMERULAR FILTRATION RATE > 60.0 (>32); GLUCOSE, FASTING 99 MG/DL (70-100); POTASSIUM SERUM 4.2 MEQ/L (3.5-5.1); SODIUM LEVEL 144 MEQ/L (136-145)
[2021-01-06 11:56] LABS: RSV AMPLIFICATION NEGATIVE (NEGATIVE)
[2021-01-06] MEDS ORDERED: MORPHINE 2 MG/ML 1ML VIAL (J2270) IV ONE (12:00)
[2021-01-06] MEDS ORDERED: KETOROLAC 30 MG/ML 1ML VIAL IV PRN (12:00)
[2021-01-06] MEDS ORDERED: MAALOX 30 ML SUSP *UDC PO PRN (12:00)
[2021-01-06] MEDS ORDERED: ONDANSETRON 4MG/2ML VIAL IV ONE (12:00)
--- NOTE | 2021-01-06 13:22 | CR.PDOC ---
General Date of Consultation: Jan 06, 2021 Attending Physician: NISSA COLVIN MD Consultation Chief Complaint The patient is a 85-year-old female admitted with a reason for visit of Fall/Leg Injury. HPI: previous cephalomedullary nail right hip. X-rays show new diaphyseal fracture of the femur. She also was treated conservatively for right distal radius fracture at her last admission. We will schedule as an outpatient visit at [facility] orthopedics. She had a fall this morning. Acute pain right lower extremity. Unable to weight-bear. Source: Patient, RN/MD Home Medications Scheduled Acetaminophen (Acetaminophen) 500 Mg Tablet, 1,000 MG PO TID Alendronate Sodium (Alendronate Sodium) 35 Mg Tablet, 35 MG PO QWEEK, (Reported) SATURDAYS Aspirin (Aspirin EC) 81 Mg Tablet.dr, 81 MG PO DAILY, (Reported) Bimatoprost (Lumigan) 0.01% 2.5ML Drops, 1 DROP OU QHS, (Reported) Calcitonin [place] (Calcitonin-[place]) 3.7 Ml [place].pump, 1 SPRAY NARES DAILY, (Reported) Calcium Carbonate/Vitamin D3 (Calcium 600 + Vit D 400 Softgl) 1 Each Capsule, 1 CAP PO BID, (Reported) TAKES WITH LUNCH AND DINNER Docusate Sodium (Stool Softener) 100 Mg Capsule, 100 MG PO QHS, (Reported) Fexofenadine HCl (Fexofenadine HCl) 60 Mg Tablet, 60 MG PO DAILY, (Reported) Levothyroxine Sodium (Levothyroxine Sodium) 88 Mcg Tablet, 88 MCG PO DAILY, (Reported) Multivitamins (Thera M Plus Tablet) 1 Each Tablet, 1 TAB PO DAILY, (Reported) Sennosides (Senna) 8.6 Mg Tablet, 17.2 MG PO QHS, (Reported) Allergies Coded Allergies: Penicillins (Verified Allergy, Mild, hives, 11/26/20) erythromycin base (Verified Allergy, Unknown, 11/26/20) nitrofurantoin (Verified Adverse Reaction, Mild, nausea, 11/26/20) ciprofloxacin (Verified Adverse Reaction, Unknown, leg cramps, 11/26/20) ibuprofen (Verified Adverse Reaction, Unknown, vision changes, 11/26/20) Past Medical History Medical History Gait instability and mechanical falls Right femoral fracture status post care for low medullary nail placement on 11/27/2020 Right distal radial fracture status post closed reduction and casting on 11/27/2020 H/O constipation, fecal stasis Hypothyroidism. Glaucoma. Breast cancer, 1995 status post chemo and radiation history of bowel blockage and resection Hiatal hernia GERD Basal cell carcinoma Seasonal allergy Osteoarthritis Granulomatous lung disease as per chest in 2011 Osteopenia Acne rosacea Surgical History , prior danii cyst removal, varicose vein surgery, hysterectomy, bowel resection secondary to bowel obstruction with ileostomy placement and reversal, right cephalomedullary nail, right closed reduction and casting wrist Family History Mother had COPD, diabetes Brothers with heart disease, hypertension, high cholesterol and diabetes Social History * Smoker: non-smoker Alcohol: Denies Drugs: denies Review of Systems Constitutional: Denies: Chills, Fever, Night Sweats Eyes: Denies: Pain, Vision change ENT: Denies: Head Aches, Ear Pain, Dysphagia Skin: Denies: Rash, Lesions, Breakdown Pulmonary: Denies: Dyspnea, Cough Cardiovascular: Denies: Chest Pain, Palpitations, Orthopnea, Paroxysmal Noc. Dyspnea, Lt Headedness Gastrointestinal: Denies: Nausea, Vomiting, Abdominal Pain, Diarrhea Genitourinary: Denies: Dysuria, Frequency, Incontinence, Retention Musculoskeletal: Reports: Joint Pain (Right hip pain), Other Symptoms (Right knee and thigh pain) FAMILY HISTORY: Noncontributory SOCIAL HISTORY: Lives with her son PHYSICAL EXAMINATION: VITAL SIGNS: Please see below. GENERAL APPEARANCE: [Alert and oriented, laying comfortably in the stretcher]. HEENT: [Within normal limits]. RESPIRATORY: [Breathing comfortably on room air]. CARDIOVASCULAR: [Vital signs stable]. ABDOMEN: [Soft nontender]. EXTREMITIES: [Right arm, short arm cast, able to move fingers well, no pain with palpation at elbow or shoulder, denies any sensory deficits Right lower extremity, moderate pain with logroll, no pain to palpation at the knee ankle or foot Denies any sensory deficits, good motor of the foot and ankle, knee motor is intact,]. NEUROLOGICAL: [Sensory intact to light touch is]. PSYCHIATRIC: [Communicates well]. LABORATORY DATA: Please see below. ASSESSMENT/PLAN: 1. [Patient had previous right intertrochanteric fracture with surgical stabilization cephalomedullary nail. Had a fall this morning. X-rays suggest periprosthetic fracture. Fracture is stabilized with a nail. No need for any further intervention.]. 2. [Distal radius fracture treated conservatively with short arm cast. We will schedule for cast off today in clinic. We will request follow-up next week for cast off and x-rays.]. Vital Signs/I&O Vital Signs Date Time Temp Pulse Resp B/P (MAP) Pulse Ox O2 Delivery O2 Flow Rate FiO2 01/06/21 12:39 98.5 60 18 166/74 (104) 99 01/06/21 09:06 Room Air Laboratory Data Labs 24H Laboratory Tests 2 01/06/21 10:48: Nucleated Red Blood Cells % (auto) 0.0, Anion Gap 6L, Glomerular Filtration Rate > 60.0, Calcium Level 8.8 01/06/21 10:59: Coronavirus (COVID-19)(PCR) NEGATIVE, Influenza Type A (RT-PCR) NEGATIVE, Influenza Type B (RT-PCR) NEGATIVE, Respiratory Syncytial Virus (PCR) NEGATIVE CBC/BMP Laboratory Tests 01/06/21 10:48 Allergies Coded Allergies: Penicillins (Verified Allergy, Mild, hives, 11/26/20) erythromycin base (Verified Allergy, Unknown, 11/26/20) nitrofurantoin (Verified Adverse Reaction, Mild, nausea, 11/26/20) ciprofloxacin (Verified Adverse Reaction, Unknown, leg cramps, 11/26/20) ibuprofen (Verified Adverse Reaction, Unknown, vision changes, 11/26/20) Home Medications Scheduled Acetaminophen (Acetaminophen) 500 Mg Tablet, 1,000 MG PO TID for 10 Days, #20 Alendronate Sodium (Alendronate Sodium) 35 Mg Tablet, 35 MG PO QWEEK, (Reported) SATURDAYS Aspirin (Aspirin EC) 81 Mg Tablet.dr, 81 MG PO DAILY, (Reported) Bimatoprost (Lumigan) 0.01% 2.5ML Drops, 1 DROP OU QHS, (Reported) Calcitonin [place] (Calcitonin-[place]) 3.7 Ml [place].pump, 1 SPRAY NARES DAILY, (Reported) Calcium Carbonate/Vitamin D3 (Calcium 600 + Vit D 400 Softgl) 1 Each Capsule, 1 CAP PO BID, (Reported) TAKES WITH LUNCH AND DINNER Docusate Sodium (Stool Softener) 100 Mg Capsule, 100 MG PO QHS, (Reported) Fexofenadine HCl (Fexofenadine HCl) 60 Mg Tablet, 60 MG PO DAILY, (Reported) Levothyroxine Sodium (Levothyroxine Sodium) 88 Mcg Tablet, 88 MCG PO DAILY, (Reported) Multivitamins (Thera M Plus Tablet) 1 Each Tablet, 1 TAB PO DAILY, (Reported) Sennosides (Senna) 8.6 Mg Tablet, 17.2 MG PO QHS, (Reported) NISSA COLVIN MD Jan 06, 2021 13:22
--- NOTE | 2021-01-06 13:33 | HPEPDOC ---
General Date of Admission 01/06/21 Date of Service: Jan 06, 2021 Chief Complaint The patient is a 85-year-old female admitted with a reason for visit of Fall/Leg Injury. Source: Patient, RN/MD History of Present Illness 85-year-old female who had a mechanical fall and had right femur intertrochanteric fracture and right wrist fracture in November 2020 , had right femur cephalomedullary nail placement and casting of the right wrist on November 27, 2020 subsequently she was discharged to [facility] on December 09, 2020 she was discharged home from rehab on January 03, 2021 was brought into the ED today again after a mechanical fall in the bathroom. She had just use the commode and stood up to pull up her pants when she lost her balance and fell on the right side with severe pain at the right hip. She describes the pain as sharp throbbing and rated it as 8 x 10 in intensity and worse with minimal movement of the right leg and unable to bear weight. work-up in the ED showed a hairline fracture in the right proximal femur right next to the previous femoral fracture hardware is intact and nondisplaced. Patient was admitted for right periprosthetic fracture. Home Medications Scheduled Acetaminophen (Acetaminophen) 500 Mg Tablet, 1,000 MG PO TID Alendronate Sodium (Alendronate Sodium) 35 Mg Tablet, 35 MG PO QWEEK, (Reported) SATURDAYS Aspirin (Aspirin EC) 81 Mg Tablet.dr, 81 MG PO DAILY, (Reported) Bimatoprost (Lumigan) 0.01% 2.5ML Drops, 1 DROP OU QHS, (Reported) Calcitonin [place] (Calcitonin-[place]) 3.7 Ml [place].pump, 1 SPRAY NARES DAILY, (Reported) Calcium Carbonate/Vitamin D3 (Calcium 600 + Vit D 400 Softgl) 1 Each Capsule, 1 CAP PO BID, (Reported) TAKES WITH LUNCH AND DINNER Docusate Sodium (Stool Softener) 100 Mg Capsule, 100 MG PO QHS, (Reported) Fexofenadine HCl (Fexofenadine HCl) 60 Mg Tablet, 60 MG PO DAILY, (Reported) Levothyroxine Sodium (Levothyroxine Sodium) 88 Mcg Tablet, 88 MCG PO DAILY, (Reported) Multivitamins (Thera M Plus Tablet) 1 Each Tablet, 1 TAB PO DAILY, (Reported) Sennosides (Senna) 8.6 Mg Tablet, 17.2 MG PO QHS, (Reported) Allergies Coded Allergies: Penicillins (Verified Allergy, Mild, hives, 11/26/20) erythromycin base (Verified Allergy, Unknown, 11/26/20) nitrofurantoin (Verified Adverse Reaction, Mild, nausea, 11/26/20) ciprofloxacin (Verified Adverse Reaction, Unknown, leg cramps, 11/26/20) ibuprofen (Verified Adverse Reaction, Unknown, vision changes, 11/26/20) Past Medical History Medical History Gait instability and mechanical falls Right femoral fracture status cephalo medullary nail placement on 11/27/2020 Right distal radial fracture status post closed reduction and casting on 11/27/2020 H/O constipation, fecal stasis Hypothyroidism. Glaucoma. Breast cancer, 1995 status post chemo and radiation history of bowel blockage and resection Hiatal hernia GERD Basal cell carcinoma Seasonal allergy Osteoarthritis Granulomatous lung disease as per chest in 2010 Osteopenia Acne rosacea Surgical History , prior danii cyst removal, varicose vein surgery, hysterectomy, bowel resection secondary to bowel obstruction with ileostomy placement and reversal, Family History Mother had COPD, diabetes Brothers with heart disease, hypertension, high cholesterol and diabetes Social History * Smoker: non-smoker Alcohol: Denies Drugs: denies A-FIB/CHADSVASC A-FIB History Current/History of A-Fib/PAF?: No Review of Systems Constitutional: Denies: Chills, Fever, Night Sweats Eyes: Denies: Pain, Vision change ENT: Denies: Head Aches, Ear Pain, Dysphagia Skin: Denies: Rash, Lesions, Breakdown Pulmonary: Denies: Dyspnea, Cough Cardiovascular: Denies: Chest Pain, Palpitations, Orthopnea, Paroxysmal Noc. Dyspnea, Lt Headedness Gastrointestinal: Denies: Nausea, Vomiting, Abdominal Pain, Diarrhea Genitourinary: Denies: Dysuria, Frequency, Incontinence, Retention Musculoskeletal: Reports: Joint Pain (Right hip pain), Other Symptoms (Right knee and thigh pain) Neurological: Denies: Weakness, Numbness, Change in speech, Confusion Physical Examination General Exam: Positive: Alert, Cooperative, No Acute Distress Eye Exam: Positive: PERRLA, Conjunctiva & lids normal, EOMI; Negative: Sclera icteric ENT Exam: Positive: Atraumatic, Mucous membr. moist/pink, Pharynx Normal, Other ENT (Bitemporal wasting) Neck Exam: Positive: Supple; Negative: JVD, thyromegaly Chest Exam: Positive: Clear to auscultation, Normal air movement Heart Exam: Positive: Rate Normal, Regular Rhythm, Normal S1, Normal S2; Negative: Murmurs, Rubs Abdomen Exam: Positive: Normal bowel sounds, Soft; Negative: Tenderness Extremity Exam: Positive: Edema (Right leg); Negative: Clubbing, Cyanosis Psych Exam: Positive: Memory Intact, Oriented x 3 Vital Signs Vital Signs Date Time Temp Pulse Resp B/P (MAP) Pulse Ox O2 Delivery O2 Flow Rate FiO2 01/06/21 09:15 64 170/74 (106) 99 01/06/21 09:06 98.6 19 Room Air Laboratory Data Labs 24H Laboratory Tests 2 01/06/21 10:48: Nucleated Red Blood Cells % (auto) 0.0, Anion Gap 6L, Glomerular Filtration Rate > 60.0, Calcium Level 8.8 01/06/21 10:59: CBC/BMP Laboratory Tests 01/06/21 10:48 Assessment/Plan 85-year-old female who had a mechanical fall and had right femur intertrochanteric fracture and right wrist fracture in November 2020 , had right femur cephalomedullary nail placement and casting of the right wrist on November 27, 2020 subsequently she was discharged to [facility] on December 09, 2020 she was discharged home from rehab on January 03, 2021 was brought into the ED today again after a mechanical fall in the bathroom. She had just use the commode and stood up to pull up her pants when she lost her balance and fell on the right side with severe pain at the right hip. She describes the pain as sharp throbbing and rated it as 8 x 10 in intensity and worse with minimal movement of the right leg and unable to bear weight. work-up in the ED showed a hairline fracture in the right proximal femur right next to the previous femoral fracture hardware is intact and nondisplaced. Patient was admitted for right periprosthetic fracture. Right periprosthetic femoral fracture Nondisplaced and intact hardware No surgical intervention indicated at this time orthopedics recommended medical management with pain control, physical therapy weightbearing as tolerated. Pain control with Tylenol, tramadol and Toradol PT /OT ARU eval Right intertrochanteric fracture on November 27, 2019 s/p surgical stabilization cephalomedullary nail. Distal radius fracture on November 26, 2020 treated conservatively with short arm cast. follow-up next week at the [facility] Ortho clinic for cast off and x-rays. Hypothyroid Continue Synthroid Chronic constipation/fecal impaction Continue with docusate senna and milk of magnesia Glaucoma Continue home eyedrop. Plan / VTE VTE Prophylaxis Ordered?: Yes Daria Lobo MD Jan 06, 2021 12:10
[2021-01-06 14:00] VITALS: BP 158/74
[2021-01-06] MEDS ORDERED: ACET-683 PO (14:21)
[2021-01-06] MEDS ORDERED: HOME MED LIST COMPLETE! XX SCH (14:25)
[2021-01-06] MEDS: DOCUSATE SODIUM 100MG CAPSULE PO SCH ×2 (15:04→21:55)
[2021-01-06] MEDS: MOM 30ML SUSPENSION UDC PO SCH (15:04)
[2021-01-06] MEDS: ASPIRIN 81MG ENTERIC TABLET PO SCH (15:04)
[2021-01-06] MEDS: traMADol 50 MG TAB PO SCH ×2 (15:05→21:56)
[2021-01-06] MEDS: SENNA 8.6 MG TAB (SENOKOT) PO SCH (21:57)
[2021-01-06 22:00] VITALS: BP 110/48
[2021-01-07 06:00] VITALS: BP 139/66
[2021-01-07] MEDS: DOCUSATE SODIUM 100MG CAPSULE PO SCH ×2 (09:45→21:00)
[2021-01-07] MEDS: MOM 30ML SUSPENSION UDC PO SCH (09:45)
[2021-01-07] MEDS: ASPIRIN 81MG ENTERIC TABLET PO SCH (09:45)
[2021-01-07] MEDS: traMADol 50 MG TAB PO SCH ×3 (09:45→21:00)
[2021-01-07] MEDS: ACETAMINOPHEN TAB 650MG DOSE (2X325MG) PO SCH ×3 (09:45→21:00)
[2021-01-07 14:00] VITALS: BP 141/63
--- NOTE | 2021-01-07 14:07 | IPNPDOC ---
Subjective Date Seen The patient was seen on 01/07/21. Subjective Chief Complaint/HPI Patient reports pain is controlled with current pain regimen. When she is at rest there is no pain but feels the pain only when she tries to bear weight. No acute overnight event Objective Physical Examination General Exam: Positive: Alert, Cooperative, No Acute Distress Eye Exam: Positive: PERRLA, Conjunctiva & lids normal, EOMI; Negative: Sclera icteric ENT Exam: Positive: Atraumatic, Mucous membr. moist/pink, Pharynx Normal, Other ENT (Bitemporal wasting) Neck Exam: Positive: Supple; Negative: JVD, thyromegaly Chest Exam: Positive: Clear to auscultation, Normal air movement Heart Exam: Positive: Rate Normal, Regular Rhythm, Normal S1, Normal S2; Negative: Murmurs, Rubs Abdomen Exam: Positive: Normal bowel sounds, Soft; Negative: Tenderness Extremity Exam: Positive: Edema (Right leg); Negative: Clubbing, Cyanosis Psych Exam: Positive: Memory Intact, Oriented x 3 Assessment /Plan Assessment 85-year-old female who had a mechanical fall and had right femur intertrochante maximo fracture and right wrist fracture in November 2020 , had right femur cephalomedullary nail placement and casting of the right wrist on November 27, 2020 subsequently she was discharged to [facility] on December 09, 2020 she was discharged home from rehab on January 03, 2021 was brought into the ED today again after a mechanical fall in the bathroom. She had just use the commo de and stood up to pull up her pants when she lost her balance and fell on the right side with severe pain at the right hip. She describes the pain as sharp throbbing and rated it as 8 x 10 in intensity and worse with minimal movement of the right leg and unable to bear weight. work-up in the ED showed a hairline fracture in the right proximal femur right next to the previous femoral fracture hardware is intact and nondisplaced. Patient was admitted for right periprosthetic fracture. Right periprosthetic femoral fracture Nondisplaced and intact hardware No surgical intervention indicated at this time orthopedics recommended medical management with pain control, physical therapy weightbearing as tolerated. Pain control with Tylenol, tramadol and Toradol PT /OT ARU eval Right intertrochanteric fracture on November 27, 2019 s/p surgical stabilization cephalomedullary nail. Distal radius fracture on November 26, 2020 treated conservatively with short arm cast. follow-up next week at the [facility] Ortho clinic for cast off and x-rays. Hypothyroid Continue Synthroid Chronic constipation/fecal impaction Continue with docusate senna and milk of magnesia Glaucoma Continue home eyedrop. Plan/VTE VTE Prophylaxis Ordered?: Yes VS, I&O, 24H, Fishbone Vital Signs/I&O Vital Signs Date Time Temp Pulse Resp B/P (MAP) Pulse Ox O2 Delivery O2 Flow Rate FiO2 01/07/21 09:45 16 01/07/21 06:00 97.9 65 139/66 (90) 99 Room Air I&O- Last 24 Hours up to 6 AM 01/07/21 05:59 Intake Total 960 ml Output Total 525 ml Balance 435 ml Daria Lobo MD Jan 07, 2021 14:07
[2021-01-07] MEDS: SENNA 8.6 MG TAB (SENOKOT) PO SCH (21:00)
[2021-01-07 22:00] VITALS: BP 129/52
[2021-01-08 06:00] VITALS: BP 135/66
[2021-01-08] MEDS: DOCUSATE SODIUM 100MG CAPSULE PO SCH ×2 (09:02→22:03)
[2021-01-08] MEDS: MOM 30ML SUSPENSION UDC PO SCH (09:03)
[2021-01-08] MEDS: ASPIRIN 81MG ENTERIC TABLET PO SCH (09:03)
[2021-01-08] MEDS: ACETAMINOPHEN TAB 650MG DOSE (2X325MG) PO SCH ×3 (09:05→22:04)
[2021-01-08] MEDS: traMADol 50 MG TAB PO SCH ×3 (09:38→22:04)
--- NOTE | 2021-01-08 12:45 | IPNPDOC ---
Subjective Date Seen The patient was seen on 01/08/21. Subjective Chief Complaint/HPI No complaints this morning. Says there is no pain when she is at rest. Pain starts as soon as she tries to bear weight. She is going to work with physical therapy later today. Objective Physical Examination General Exam: Positive: Alert, Cooperative, No Acute Distress Eye Exam: Positive: PERRLA, Conjunctiva & lids normal, EOMI; Negative: Sclera icteric ENT Exam: Positive: Atraumatic, Mucous membr. moist/pink, Pharynx Normal, Other ENT (Bitemporal wasting) Neck Exam: Positive: Supple; Negative: JVD, thyromegaly Chest Exam: Positive: Clear to auscultation, Normal air movement Heart Exam: Positive: Rate Normal, Regular Rhythm, Normal S1, Normal S2; Negative: Murmurs, Rubs Abdomen Exam: Positive: Normal bowel sounds, Soft; Negative: Tenderness Extremity Exam: Positive: Edema (Right leg); Negative: Clubbing, Cyanosis Psych Exam: Positive: Memory Intact, Oriented x 3 Assessment /Plan Assessment 85-year-old female who had a mechanical fall and had right femur intertrochante maixmo fracture and right wrist fracture in November 2020 , had right femur cephalomedullary nail placement and casting of the right wrist on November 27, 2020 subsequently she was discharged to [facility] on December 09, 2020 she was discharged home from rehab on January 03, 2021 was brought into the ED today again after a mechanical fall in the bathroom. She had just use the commo de and stood up to pull up her pants when she lost her balance and fell on the right side with severe pain at the right hip. She describes the pain as sharp throbbing and rated it as 8 x 10 in intensity and worse with minimal movement of the right leg and unable to bear weight. work-up in the ED showed a hairline fracture in the right proximal femur right next to the previous femoral fracture hardware is intact and nondisplaced. Patient was admitted for right periprosthetic fracture. Right periprosthetic femoral fracture Nondisplaced and intact hardware No surgical intervention indicated at this time orthopedics recommended medical management with pain control, physical therapy weightbearing as tolerated. Pain control with Tylenol, tramadol and Toradol Continue PT /OT Right intertrochanteric fracture on November 27, 2019 s/p surgical stabilization cephalomedullary nail. Distal radius fracture on November 26, 2020 treated conservatively with short arm cast. follow-up next week at the [facility] Ortho clinic for cast off and x-rays. Hypothyroid Continue Synthroid Chronic constipation/fecal impaction Continue with docusate senna and milk of magnesia Glaucoma Continue home eyedrop. Dispo: Home with services Vs Sub acute rehab depending upon how patient progress es with PT. Plan/VTE VTE Prophylaxis Ordered?: Yes VS, I&O, 24H, Fishbone Vital Signs/I&O Vital Signs Date Time Temp Pulse Resp B/P (MAP) Pulse Ox O2 Delivery O2 Flow Rate FiO2 01/08/21 09:38 18 01/08/21 09:00 78 97 Room Air 01/08/21 06:00 98.0 135/66 (89) I&O- Last 24 Hours up to 6 AM 01/08/21 06:00 Intake Total 900 ml Output Total 1100 ml Balance -200 ml Daria Lobo MD Jan 08, 2021 12:45
[2021-01-08 14:00] VITALS: BP 118/64
[2021-01-08 22:00] VITALS: BP 120/78
[2021-01-08] MEDS: SENNA 8.6 MG TAB (SENOKOT) PO SCH (22:03)
[2021-01-09] MEDS ORDERED: TRAM50TA2 PO (05:58)
[2021-01-09 06:00] VITALS: BP 151/60
--- NOTE | 2021-01-09 06:02 | DS.PDOC ---
Discharge Summary General Date of Admission Jan 06, 2021 at 11:59 Date of Discharge 01/09/21 Discharge Summary PROCEDURES PERFORMED DURING STAY: [None]. DISCHARGE DIAGNOSES: Right periprosthetic femoral diaphysis fracture Recent right intertrochanteric fracture of femur in November 2020 Recent right distal radius fracture in November 2020 Chronic constant Gait instability and recurrent falls Glaucoma COMPLICATIONS/CHIEF COMPLAINT: Femur Fracture,Right. HOSPITAL COURSE: 85-year-old female who had a mechanical fall and had right femur intertrochanteric fracture and right wrist fracture in November 2020 , had right femur cephalomedullary nail placement and casting of the right wrist on November 27, 2020 subsequently she was discharged to [facility] on December 09, 2020 she was discharged home from rehab on January 03, 2021 was brought into [facility] ED on 01/06/21 again after a mechanical fall in the bathroom. She had just used the commode and stood up to pull up her pants when she lost her balance and fell on the right side with severe pain at the right hip. She described the pain as sharp throbbing and rated it as 8 x 10 in intensity and worse with minimal movement of the right leg and unable to bear weight. Work-up in the ED showed a hairline fracture in the right proximal femur right next to the previous femoral fracture hardware is intact and nondisplaced. Patient was admitted for right femoral periprosthetic fracture. Right periprosthetic femoral fracture Nondisplaced and intact hardware No surgical intervention indicated at this time orthopedics recommended medical management with pain control, physical therapy weightbearing as tolerated. Pain control with Tylenol, tramadol and Toradol Continue PT /OT Right intertrochanteric fracture on November 27, 2019 s/p surgical stabilization cephalomedullary nail. Distal radius fracture on November 26, 2020 treated conservatively with short arm cast. follow-up next week at the [facility] Ortho clinic for cast off and x-rays. Hypothyroid Continue Synthroid Chronic constipation/fecal impaction Continue with docusate senna and milk of magnesia Glaucoma Continue home eyedrop. DISCHARGE MEDICATIONS: Please see below. ALLERGIES: Please see below. PHYSICAL EXAMINATION ON DISCHARGE: VITAL SIGNS: Please see below. General Exam: Positive: Alert, Cooperative, No Acute Distress Eye Exam: Positive: PERRLA, Conjunctiva & lids normal, EOMI; Negative: Sclera icteric ENT Exam: Positive: Atraumatic, Mucous membr. moist/pink, Pharynx Normal, Other ENT (Bitemporal wasting) Neck Exam: Positive: Supple; Negative: JVD, thyromegaly Chest Exam: Positive: Clear to auscultation, Normal air movement Heart Exam: Positive: Rate Normal, Regular Rhythm, Normal S1, Normal S2; Negative: Murmurs, Rubs Abdomen Exam: Positive: Normal bowel sounds, Soft; Negative: Tenderness Extremity Exam: Positive: Edema (Right leg); Negative: Clubbing, Cyanosis Psych Exam: Positive: Memory Intact, Oriented x 3 LABORATORY DATA: Please see below. IMAGING: Right hip and pelvis x-ray FINDINGS: The previously described proximal femoral fracture is unchanged. Lag screw and intramedullary angel are unchanged. Seen in the lateral cortex of the proximal femoral diaphysis there is a new lucency. This is hairline in appearance. This is seen only on the AP view. IMPRESSION: Evidence of a new hairline fracture proximal femur as described above. Right femur x-ray: 01/06 FINDINGS: There is a new hairline lucency in the proximal femoral lateral diaphyseal cortex. The previously described proximal femoral fracture appears unchanged. The intramedullary angel and lag screw appear unchanged. IMPRESSION: There is evidence of a new hairline proximal femoral fracture as described abo ve. This was imaged only in the AP view. ACTIVITY: [As tolerated]. DIET: As tolerated DISCHARGE PLAN: Subacute rehab to [facility] DISCHARGE INSTRUCTIONS: Follow-up with [facility] Ortho in 1 week for cast removal in the wrist DISCHARGE CONDITION: [Stable]. TIME SPENT ON DISCHARGE: 35 minutes. Vital Signs/I&Os Vital Signs Date Time Temp Pulse Resp B/P (MAP) Pulse Ox O2 Delivery O2 Flow Rate FiO2 01/08/21 22:04 18 01/08/21 22:00 97.8 69 120/78 (92) 98 01/08/21 16:28 Room Air I&O- Last 24 Hours up to 6 AM 01/09/21 07:00 Intake Total 1050 ml Output Total 830 ml Balance 220 ml Laboratory Data Labs 24H Laboratory Tests 2 01/08/21 18:22: Coronavirus (COVID-19)(PCR) NEGATIVE Discharge Medications Scheduled Alendronate Sodium (Alendronate Sodium) 35 Mg Tablet, 35 MG PO QWEEK, (Reported) SATURDAYS Aspirin (Aspirin EC) 81 Mg Tablet.dr, 81 MG PO DAILY, (Reported) Bimatoprost (Lumigan) 0.01% 2.5ML Drops, 1 DROP OU QHS, (Reported) Calcitonin [place] (Calcitonin-[place]) 3.7 Ml [place].pump, 1 SPRAY NARES DAILY, (Reported) Calcium Carbonate/Vitamin D3 (Calcium 600 + Vit D 400 Softgl) 1 Each Capsule, 1 CAP PO BID, (Reported) TAKES WITH LUNCH AND DINNER Docusate Sodium (Stool Softener) 100 Mg Capsule, 100 MG PO QHS, (Reported) Fexofenadine HCl (Fexofenadine HCl) 60 Mg Tablet, 60 MG PO DAILY, (Reported) Levothyroxine Sodium (Levothyroxine Sodium) 88 Mcg Tablet, 88 MCG PO DAILY, (Reported) Multivitamins (Thera M Plus Tablet) 1 Each Tablet, 1 TAB PO DAILY, (Reported) Sennosides (Senna) 8.6 Mg Tablet, 17.2 MG PO QHS, (Reported) Tramadol HCl (Tramadol HCl) 50 Mg Tablet, 50 MG PO TID Scheduled PRN Acetaminophen (Acetaminophen) 500 Mg Tablet, 1,000 MG PO Q6H PRN for PAIN LEVEL 1-4, (Reported) Allergies Coded Allergies: Penicillins (Verified Allergy, Mild, hives, 11/26/20) erythromycin base (Verified Allergy, Unknown, 11/26/20) nitrofurantoin (Verified Adverse Reaction, Mild, nausea, 11/26/20) ciprofloxacin (Verified Adverse Reaction, Unknown, leg cramps, 11/26/20) ibuprofen (Verified Adverse Reaction, Unknown, vision changes, 11/26/20) Daria Lobo MD Jan 09, 2021 06:02
[2021-01-09 07:47] LABS: BASO % 0.7 % (0.0-1.0); EOS # 0.1 10^3/uL (0.0-0.5); EOS % 1.6 % (0.0-3.0); HEMATOCRIT 39.2 % (36.0-47.0); HEMOGLOBIN 12.3 g/dl (12.0-15.5); LYMPH # 0.9 10^3/uL (1.5-5.0); LYMPH % 20.1 % (24.0-44.0); MEAN CORPUSCULAR HEMOGLOBIN 31.9 pg (27.0-33.0); MEAN CORPUSCULAR HGB CONC 31.4 g/dl (32.0-36.5); MEAN CORPUSCULAR VOLUME 101.6 fl (80.0-96.0); MONO # 0.5 10^3/uL (0.0-0.8); MONO % 12.1 % (2.0-8.0); NEUTROPHILS # 2.9 10^3/uL (1.5-8.5); NEUTROPHILS % 65.1 % (36.0-66.0); PLATELET COUNT, AUTOMATED 268 10^3/uL (150-450); RED BLOOD COUNT 3.86 10^6/uL (4.00-5.40); WHITE BLOOD COUNT 4.5 10^3/uL (4.0-10.0)
[2021-01-09 08:05] LABS: BLOOD UREA NITROGEN 16 MG/DL (7-18); CALCIUM LEVEL 8.8 MG/DL (8.8-10.2); CARBON DIOXIDE LEVEL 30 MEQ/L (21-32); CHLORIDE LEVEL 109 MEQ/L (98-107); GLOMERULAR FILTRATION RATE > 60.0 (>32); GLUCOSE, FASTING 85 MG/DL (70-100); POTASSIUM SERUM 4.5 MEQ/L (3.5-5.1); SODIUM LEVEL 143 MEQ/L (136-145)
[2021-01-09] MEDS: MOM 30ML SUSPENSION UDC PO SCH (09:00)
[2021-01-09] MEDS: DOCUSATE SODIUM 100MG CAPSULE PO SCH (12:23)
[2021-01-09] MEDS: traMADol 50 MG TAB PO SCH (12:24)
[2021-01-09] MEDS: ACETAMINOPHEN TAB 650MG DOSE (2X325MG) PO SCH (12:24)
[2021-01-09] MEDS: ASPIRIN 81MG ENTERIC TABLET PO SCH (12:24)
== END 2021-01-09 13:15 | DRG 561 ==
LOC: M ED 08:54 → M ED INP 11:59 → ENRESERV 12:37 → M MS5PR 13:45
PROVIDERS: ADMIT Internal Medicine Nephrology; ATTEND Internal Medicine Nephrology
DX: M96.661 Fracture of femur following insertion of orthopedic implant, joint prosthesis, or bone plate, right leg (principal); R26.89 Other abnormalities of gait and mobility; R29.6 Repeated falls; E03.9 Hypothyroidism, unspecified; K59.09 Other constipation; H40.9 Unspecified glaucoma; K44.9 Diaphragmatic hernia without obstruction or gangrene; K21.9 Gastro-esophageal reflux disease without esophagitis; L71.9 Rosacea, unspecified; J30.2 Other seasonal allergic rhinitis; Z85.828 Personal history of other malignant neoplasm of skin; Z79.82 Long term (current) use of aspirin; Z79.899 Other long term (current) drug therapy; Z88.0 Allergy status to penicillin; Z88.1 Allergy status to other antibiotic agents; Z88.6 Allergy status to analgesic agent; Z88.8 Allergy status to other drugs, medicaments and biological substances; Z90.49 Acquired absence of other specified parts of digestive tract; Z20.822 Contact with and (suspected) exposure to COVID-19

== ENCOUNTER → 2021-01-15 | Outpatient (CLI) | payer MEDICARE ==
[~2021-01-15] MED LIST changes: +TRAM50TA2 PO
--- NOTE | 2021-01-15 11:50 | REP ---
INDICATION: [facility]. COMPARISON: 12/23/[address] TECHNIQUE: Three views FINDINGS: Previously described distal radial fracture has healed. There is degenerative change seen involving the wrist status quo. There is no evidence of an acute fracture. IMPRESSION: As above <Electronically signed by Isidro Alvarado > 01/15/21 [id number]
--- NOTE | 2021-01-15 11:51 | REP ---
INDICATION: RT [facility]. COMPARISON: 01/06/2021 TECHNIQUE: AP and lateral views FINDINGS: The previously described fractures appear stable. The lag screw and imaged portion of the intramedullary angel appears stable. IMPRESSION: No significant change <Electronically signed by Isidro Alvarado > 01/15/21 [id number]
== END ==
LOC: M SOG 10:25
PROVIDERS: ATTEND Orthopaedic Surgery
DX: S52.531D Colles' fracture of right radius, subsequent encounter for closed fracture with routine healing (principal); Z47.89 Encounter for other orthopedic aftercare

== ENCOUNTER → 2021-03-10 | Outpatient (CLI) | payer MEDICARE | LOC: M SOG 08:14 | PROVIDERS: ATTEND Orthopaedic Surgery | DX: S52.531D Colles' fracture of right radius, subsequent encounter for closed fracture with routine healing (principal); S72.141D Displaced intertrochanteric fracture of right femur, subsequent encounter for closed fracture with routine healing ==

== ENCOUNTER → 2021-05-22 | Outpatient (REF) | payer MEDICARE ==
[~2021-05-22] MED LIST changes: -FEXO60CA PO; +FEXO60TA99 PO
== END ==
LOC: M LAB REF 13:02
PROVIDERS: ATTEND Registered Nurse
DX: R30.0 Dysuria (principal)

== ENCOUNTER → 2021-06-10 | Outpatient (CLI) | payer MEDICARE | LOC: M SOG 08:57 | PROVIDERS: ATTEND Orthopaedic Surgery | DX: S72.141D Displaced intertrochanteric fracture of right femur, subsequent encounter for closed fracture with routine healing (principal) ==

== ENCOUNTER → 2022-07-24 | Outpatient (REF) | payer MEDICARE ==
[~2022-07-24] MED LIST changes: +SENN-186 PO; -SENN-80 PO
[2022-07-24 13:45] LABS: APPEARANCE, URINE HAZY (CLEAR); BACTERIA, URINE AUTO NEGATIVE (NEGATIVE); BILIRUBIN, URINE AUTO NEGATIVE (NEGATIVE); BLOOD, URINE BLOOD NEGATIVE (NEGATIVE); COLOR, URINE YELLOW (YELLOW); GLUCOSE, URINE (UA) AUTO NEGATIVE (NEGATIVE); KETONE, URINE AUTO NEGATIVE (NEGATIVE); LEUKOCYTE ESTERASE, URINE AUTO 3+ (NEGATIVE); MUCUS, URINE SMALL (NEGATIVE); NITRITE, URINE AUTO NEGATIVE (NEGATIVE); PROTEIN, URINE AUTO NEGATIVE (NEGATIVE); RBC, URINE AUTO 6 /HPF (0-3); SPECIFIC GRAVITY URINE AUTO 1.018 (1.002-1.035); SQUAMOUS EPITHELIAL CELL UR AU 1 /HPF (0-6); UROBILINOGEN, URINE AUTO 0.2 mg/dL (0.0-2.0); WBC, URINE AUTO 95 /HPF (0-3)
== END ==
LOC: M LAB REF 12:38
PROVIDERS: ATTEND Internal Medicine
DX: R31.9 Hematuria, unspecified (principal)

== ENCOUNTER → 2022-09-23 | Outpatient (CLI) | payer MEDICARE ==
[~2022-09-23] MED LIST changes: +DICL100G10 TOP; -DICL1GEL3 TOP
== END ==
LOC: M WHC 13:33
PROVIDERS: ATTEND Internal Medicine
DX: M89.9 Disorder of bone, unspecified (principal); M81.0 Age-related osteoporosis without current pathological fracture